=== PATIENT | male | born 1945 | race Caucasian/White ===

== ENCOUNTER → 2016-11-15 | Outpatient (CLI) | payer OTHER ==
[~2016-11-15] MED LIST: ALL100 PO; CYAN3INJ; FLUO10CA48 PO; MULT-506 PO; POTA1080; ZNTT/150 PO; [UNRECOGNIZED DRUG - OTHER]
--- NOTE | 2016-11-15 09:01 | DIAGNOSTIC IMAGING REPORT ---
KUB HISTORY: 71 years-old Male NEPHROLITHIASIS COMPARISON: KUB 07/31/2015 TECHNIQUE: Supine abdominal radiograph FINDINGS: Previously described left-sided nephrolithiasis is mostly obscured by overlying colonic stool. Cluster of calcifications medial to the right kidney are again noted adjacent to the right transverse process of L2. There are multiple surgical clips and mariam within the right mid abdomen. Phleboliths are seen within the pelvis. Bowel gas pattern is nonobstructive. Mild degenerative changes involving the hips. There is mild convex right curvature of the lumbar spine with multilevel degenerative changes of the lumbar spine. IMPRESSION: 1. Previously described left-sided nephrolithiasis are mostly obscured by overlying colonic stool. Further evaluation could be conducted with ultrasound or CT if clinically indicated. 2. Cluster of calcifications medial to the right kidney appear unchanged. 3. Nonobstructive bowel gas pattern. The above report was generated using voice recognition software. It may contain grammatical, syntax or spelling errors. Electronically signed by: Jordon Avila M.D. 11/15/2016 8:59 AM Dictated Date/Time: 11/15/2016 8:55 AM
== END | disposition home or self-care (01) ==
LOC: C.LAB 08:33
PROVIDERS: ATTEND Nurse Practitioner Family
DX: N20.0 Calculus of kidney (principal)

== ENCOUNTER 2018-05-25 18:37 | Inpatient (IN) ==
[2018-05-25] MEDS ORDERED: ONDANSETRON INJ 2 MG/ML 2 ML VIAL IV STA (19:31)
[2018-05-25] MEDS ORDERED: MoRPHine SULFATE 4 MG/ML 1 ML CARP\\VIAL IV STA (19:31)
[2018-05-25 19:40] LABS: Basophils # (auto) 0.01 K/uL (0-0.2); Basophils % (auto) 0.1 %; Eosinophils # (auto) 0.04 K/uL (0-0.5); Eosinophils % (auto) 0.4 %; Hematocrit (blood only) 39.5 % (42-52); Immature Granulocytes # (auto) 0.02 K/uL (0.00-0.02); Immature Granulocytes % (auto) 0.2 %; Lymphocytes # (auto) 0.34 K/uL (1.2-3.4); Lymphocytes % (auto) 3.1 %; Mean Corpuscular Hgb Conc 35.4 g/dL (32-36); Mean Corpuscular Volume 92.9 fL (80-100); Mean Platelet Volume 11.7 fL (7.4-10.4); Monocytes % (auto) 9.9 %; Neutrophils # (auto) 9.58 K/uL (1.4-6.5); Neutrophils % (auto) 86.3 %; Platelet Count 194 K/uL (130-400); RDW Coefficient of Variation 14.6 % (11.5-14.5); RDW Standard Deviation 49.8 fL (36.4-46.3); Red Blood Count 4.25 M/uL (4.7-6.1); White Blood Count 11.09 K/uL (4.8-10.8)
[2018-05-25] MEDS ORDERED: SODIUM CHLORIDE 0.9% 1000ML 1,000 ML IV SCH (19:45)
[2018-05-25 19:49] LABS: Alanine Aminotransferase 32 U/L (12-78); Albumin Level 3.6 gm/dl (3.4-5.0); Aspartate Aminotransferase 17 U/L (15-37); Blood Urea Nitrogen 18 mg/dl (7-18); Calcium 8.9 mg/dl (8.5-10.1); Carbon Dioxide 23 mmol/L (21-32); Chloride 103 mmol/L (98-107); Est GFR (African American) 32.5; Glucose 140 mg/dl (70-99); Potassium 3.7 mmol/L (3.5-5.1); Sodium 135 mmol/L (136-145)
[2018-05-25 19:52] LABS: Albumin Globulin Ratio 0.9 (0.9-2); Alkaline Phosphatase 57 U/L (45-117); Total Protein 7.6 gm/dl (6.4-8.2)
--- NOTE | 2018-05-25 19:53 | Emergency Department Note ---
Entered by Jessie Razo acting as a scribe for Otoniel Gil DO History of Present Illness General Chief complaint: Flank Pain Stated complaint: side pain, lower back pain Time Seen by Provider: 05/25/18 19:01 Source: patient History of Present Illness Onset (ago): day(s) 2 Location: left (Flank) Radiation: back Severity: similar to prior episodes Pain Consistency: + intermittent Maximum Pain Intensity: 8 Quality: + other (Flank pain) Relieved By: + medication (Pain medication) and + other (Heating pad) Exacerbated By: + eating Associated symptoms: + nausea/vomiting and + other (Constipated) Treatments prior to arrival: other (Ibuprofen) The patient is a 72 year old male who presents to the Emergency Room with complaints of intermittent flank pain starting 2 days ago. The patient reports his left flank is very painful and that it is radiating to his back. He states that he has vomited and is constipated. He notes that he has not had a bowel movement in 2.5 days. The patient reports that applying pressure to his flank and eating worsen his pain. He states that taking his pain medication and using a heating pad helped to relieve his pain but that he has ran out of pain medication. He notes that [employer] he took Ibuprofen that did not help his pain. The patient reports that he has a history of having kidney stones and that he just had a KUB done. Home Medications Home Medications Medication Instructions Recorded Confirmed Type allopurinol [Zyloprim] 300 mg PO DAILY 05/25/18 05/25/18 History aspirin [Aspir-81] 81 mg PO DAILY 05/25/18 05/25/18 History cholecalciferol (vitamin D3) 20,000 unit PO DAILY 05/25/18 05/25/18 History [Vitamin D3] cyanocobalamin (vitamin B-12) 1,000 mcg IM MONTHLY 05/25/18 05/25/18 History fluoxetine [Prozac] 20 mg PO QAM 05/25/18 05/25/18 History multivitamin 1 tab PO DAILY 05/25/18 05/25/18 History omega 2-gfa-coh-fish oil [Fish Oil] 2 cap PO QAM 05/25/18 05/25/18 History polysaccharide iron complex 150 mg PO DAILY 05/25/18 05/25/18 History [iFerex 150] potassium citrate [Urocit-K 10] 10 meq PO TID 05/25/18 05/25/18 History ranitidine HCl [Zantac] 150 mg PO DAILY 05/25/18 05/25/18 History thioguanine 40 mg PO DAILY 05/25/18 05/25/18 History Allergies Allergy/AdvReac Type Severity Reaction Status Date / Time No Known Allergies Allergy Unverified 05/25/18 19:55 Past Med/Surg History Medical History Kidney stone Crohn's disease Surgical History History of appendectomy Social History Preferred Language: [place] Feels Safe at Home: Yes Smoking Status: Never smoker Review of Systems See HPI for pertinent positives & negatives. and A total of 10 systems reviewed and were otherwise negative Physical Exam Vital Signs Vital Signs - 24 hr 05/25/18 18:42 05/25/18 20:47 Temperature 37.1 C Temperature Source Oral Sepsis Recent Fever Within 48 Hours No Sepsis New/Unexplained Change in Mental Status No Sepsis Action Taken by Nursing No Action Required Pulse Rate 100 H Pulse Rate [Right Finger] 95 H Respiratory Rate 18 20 Respiratory Depth Normal Blood Pressure 145/91 H Blood Pressure [Right Arm] 164/102 H Blood Pressure Mean 109 Blood Pressure Mean [Right Arm] 122 Pulse Oximetry 99 96 Oxygen Delivery Method Room Air CONSTITUTIONAL/VITAL SIGNS: Reviewed / noted above. GENERAL: Non-toxic in appearance. INTEGUMENTARY: Warm, dry, and Finger. HEAD: Normocephalic. EYES: without scleral icterus or trauma. ENT/OROPHARYNX: clear and moist. LYMPHADENOPATHY/NECK: Is supple without lymphadenopathy or meningismus. RESPIRATORY: Lungs clear and equal. CARDIOVASCULAR: Regular rate and rhythm. GI/ABDOMEN: Soft. No organomegaly or pulsatile mass. No rebound or guarding. Normal bowel sounds. Left sided abdominal tenderness. EXTREMITIES: Warm and well perfused. BACK: Left CVA tenderness. NEUROLOGICAL: Intact without focal deficits. PSYCHIATRIC: normal affect. MUSCULOSKELETAL: Normally developed with good muscle tone. Course 2124: Past medical records reviewed. The patient was evaluated in room A9B, and a complete history and physical examination were performed. 2100: I reviewed the patient's case with Dr. Daniels [facility] [place] Urologist who recommended that the patient stay in the hospital for pain management. 2113: I reviewed the patient's case with Dr. Jamaal Renner hospitalist. He will evaluate the patient for further management. Administered Medications Discontinued Medications Sodium Chloride (Nss 1000ml) 1,000 mls @ 999 mls/hr IV .Q1H1M JAYY Stop: 05/25/18 20:45 Last Admin: 05/25/18 19:42 Dose: 999 mls/hr Documented by: [id number] Morphine Sulfate (Morphine Sulfate) 4 mg IV NOW STA Stop: 05/25/18 19:32 Last Admin: 05/25/18 19:42 Dose: 4 mg Documented by: [id number] Morphine Sulfate (Morphine Sulfate) 6 mg IV NOW STA Stop: 05/25/18 20:08 Last Admin: 05/25/18 20:11 Dose: 6 mg Documented by: [id number] Ondansetron HCl (Zofran) 4 mg IV NOW STA Stop: 05/25/18 19:32 Last Admin: 05/25/18 19:42 Dose: 4 mg Documented by: [id number] Medical Decision Making Differential Diagnosis Differential diagnosis: Etiologies such as shingles, pyelonephritis/UTI, renal colic, appendicitis, diverticulitis, mesenteric ischemia, torsion, aortic pathology, infections, inflammatory bowel disease, bowel obstruction, PUD, biliary pathology, as well as others were entertained. Medical Records Attestation: I reviewed the patient's medical records. Home Medications Current Medication List: was personally reviewed by me Laboratory Data Attestation: I reviewed the patient's lab results. Result diagrams: 05/25/18 19:10 05/25/18 19:10 Lab Results 05/25/18 05/25/18 Range/Units 19:10 19:10 WBC 11.09 H (4.8-10.8) K/uL RBC 4.25 L (4.7-6.1) M/uL Hgb 14.0 (14.0-18.0) g/dL Hct 39.5 L (42-52) % MCV 92.9 (80-100) fL MCH 32.9 (25-34) pg MCHC 35.4 (32-36) g/dL RDW Std Deviation 49.8 H (36.4-46.3) fL RDW Coeff of Edwina 14.6 H (11.5-14.5) % Plt Count 194 (130-400) K/uL MPV 11.7 H (7.4-10.4) fL Immature Gran % (Auto) 0.2 % Neut % (Auto) 86.3 % Lymph % (Auto) 3.1 % [place] % (Auto) 9.9 % Eos % (Auto) 0.4 % Baso % (Auto) 0.1 % Immature Gran # (Auto) 0.02 (0.00-0.02) K/uL Neut # (Auto) 9.58 H (1.4-6.5) K/uL Lymph # (Auto) 0.34 L (1.2-3.4) K/uL [place] # (Auto) 1.10 H (0.11-0.59) K/uL Eos # (Auto) 0.04 (0-0.5) K/uL Baso # (Auto) 0.01 (0-0.2) K/uL Sodium 135 L (136-145) mmol/L Potassium 3.7 (3.5-5.1) mmol/L Chloride 103 (98-107) mmol/L Carbon Dioxide 23 (21-32) mmol/L Anion Gap 9.0 (3-11) BUN 18 (7-18) mg/dl Creatinine 2.24 H (0.6-1.4) mg/dl Est Cr Clr Drug Dosing Not Reportable Est GFR ( Amer) 32.5 Est GFR (Non-Af Amer) 28.0 BUN/Creatinine Ratio 8.0 L (10-20) Glucose 140 H (70-99) mg/dl Calcium 8.9 (8.5-10.1) mg/dl Total Bilirubin 1.0 (0.2-1) mg/dl AST 17 (15-37) U/L ALT 32 (12-78) U/L Alkaline Phosphatase 57 (45-117) U/L Total Protein 7.6 (6.4-8.2) gm/dl Albumin 3.6 (3.4-5.0) gm/dl Globulin 4.0 (2.5-4.0) gm/dl Albumin/Globulin Ratio 0.9 (0.9-2) Lipase 97 (73-393) U/L Imaging Data Radiologist's Impression: Radiology results as stated below per my review and the radiologist's interpretation: ABDOMEN AND PELVIS CT WITHOUT CONTRAST CT DOSE: 524.13 mGy.cm HISTORY: Acute left-sided flank pain and left lower quadrant abdominal pain left flank pain TECHNIQUE: Multiaxial CT images of the abdomen and pelvis were performed without contrast. A dose lowering technique was utilized adhering to the principles of ALARA. COMPARISON STUDY: KUB 05/23/2018, CT abdomen and pelvis 12/31/2010. FINDINGS: Mild subsegmental bibasilar atelectasis/scarring with scattered calcified granulomata. 6 mm solid nodule of the basal left lower lobe, image 71 series 3 is unchanged from 2011 compatible with benign etiology. Unchanged 3 mm solid nodule of the basal right lower lobe. There is no pneumatosis or pneumoperitoneum. The imaged inferior cardiac chambers are unremarkable with coronary arterial calcifications noted. There is mild to moderate gallbladder distention without cholelithiasis identified. Hepatic steatosis. Liver is otherwise unremarkable. No intrahepatic biliary ductal dilation. The spleen, pancreas and adrenal glands are unremarkable. Mild renal cortical thinning noted bilaterally. There are at least 4 nonobstructing calculi about the right kidney measuring up to 2-3 mm. Mild dilation about the proximal right ureter without ureteral calculi or hydronephrosis. 3.0 cm cyst of the superior pole right kidney. Moderate left- sided hydroureteronephrosis secondary to an 8 x 6 x 13 mm calculus about the left proximal ureter, just distal to the ureteropelvic junction at the level of the mid L3 vertebral body. Layering calculi about the renal pelvis measuring up to 1.8 cm. Punctate nonobstructing calculi are seen about the inferior pole left kidney. Moderate left urothelial thickening. There is severe left perinephric and moderate periureteral inflammation. 6.6 x 5.1 cm cyst of the inferior pole left kidney, previously measured 5.6 x 3.8 cm from 2011. On today's study there is new acute hemorrhage along the inferior aspect of the cyst. Moderate perinephric edema tracks into the left hemipelvis. Mild nonspecific urinary bladder wall thickening with prostamegaly. Small fat filled bilateral inguinal hernias. Calcification of the aorta without aneurysm. No adenopathy. No bowel obstruction or focal bowel wall thickening. Tortuous sigmoid colon. Mild to moderate formed stool throughout the colon suggests constipation. Multiple surgical clips noted about the right hemiabdomen abdominal right lower quadrant. Findings suggest prior partial right hemicolectomy with enterocolic anastomosis. There are several tiny fat filled ventral abdominal wall hernias. Bones appear to be intact without acute fracture. Degenerative changes of the spine, pelvis and hips. IMPRESSION: 1. Moderate left-sided hydroureteronephrosis secondary to an 8 x 6 x 13 mm calculus about the proximal left ureter, just distal to the ureteropelvic junc tion at the level of the mid L3 vertebral body. 2. Moderate associated left urothelial thickening is likely reactive. Correlate with urinalysis to exclude superimposed infection. 3. Nonobstructing bilateral nephrolithiasis with large calculi noted about the left renal pelvis. 4. Large left renal cyst about the inferior pole left kidney demonstrates mild acute internal hemorrhage. 5. Prostamegaly with mild urinary bladder wall thickening suggestive of chronic bladder outlet obstruction. 6. Suggested constipation. 7. Hepatic steatosis. 8. Additional findings as above. Electronically signed by: Jordon Avila M.D. 05/25/2018 8:39 PM Blood Pressure Blood Pressure Findings: Elevated blood pressure Blood Pressure Disposition: further management by hospitalist [place] Narrative This is a 72-year-old male who presents to the ED of left-sided flank and back pain. His symptoms started on Monday. He states that he had a KUB done by Dr. Suarez. On he vomited because of the pain. This morning he felt okay but his pain came on with increased intensity this afternoon. It appeared to be from migrating towards the front. He came in for evaluation. The vital signs are stable. His blood pressure was 145/91. He has left CVA tenderness on exam as well as some left-sided abdominal tenderness. CBC is unremarkable. Chemistry panel was unremarkable with exception of a creatinine of 2.24. The CT scan of the abdomen pelvis reveals a large left-sided ureteral calculus measuring 8 x 6 x 13 in the proximal left ureter causing moderate left-sided hyd roureteronephrosis. There is also noted to be a large left renal cyst with some internal hemorrhage that is described as mild. The patient's symptoms were improved somewhat with 10 mg of IV morphine. He received 4 mg and then 6 mg. He was also given IV Zofran and IV fluids. I spoke with Dr. Milan from urology. He recommends the patient be admitted for inpatient evaluation. I spoke with Dr. Angulo. He will see the patient. Impression & Plan Renal colic, Left ureteral stone, Acute kidney insufficiency The scribe's documentation has been prepared under my direction and personally reviewed by me in its entirety. I confirm that the note above accurately reflects all work, treatment, procedures, and medical decision making performed by me.
[2018-05-25] MEDS ORDERED: MoRPHine SULFATE 10 MG/ML CARP/VIAL IV STA (20:07)
--- NOTE | 2018-05-25 20:41 | CT Scan Report ---
ABDOMEN AND PELVIS CT WITHOUT CONTRAST CT DOSE: 524.13 mGy.cm HISTORY: Acute left-sided flank pain and left lower quadrant abdominal pain left flank pain TECHNIQUE: Multiaxial CT images of the abdomen and pelvis were performed without contrast. A dose lo wering technique was utilized adhering to the principles of ALARA. COMPARISON STUDY: KUB 05/23/2018, CT abdomen and pelvis 12/31/2010. FINDINGS: Mild subsegmental bibasilar atelectasis/scarring with scattered calcified granulomata. 6 mm solid nod ule of the basal left lower lobe, image 71 series 3 is unchanged from 2011 compatible with benign rachel ology. Unchanged 3 mm solid nodule of the basal right lower lobe. There is no pneumatosis or pneumope ritoneum. The imaged inferior cardiac chambers are unremarkable with coronary arterial calcifications noted. There is mild to moderate gallbladder distention without cholelithiasis identified. Hepatic steatosis . Liver is otherwise unremarkable. No intrahepatic biliary ductal dilation. The spleen, pancreas and adrenal glands are unremarkable. Mild renal cortical thinning noted bilaterally. There are at least 4 nonobstructing calculi about the right kidney measuring up to 2-3 mm. Mild dilation about the proximal right ureter without ureteral calculi or hydronephrosis. 3.0 cm cyst of the superior pole right kidney. Moderate left-sided hydrour eteronephrosis secondary to an 8 x 6 x 13 mm calculus about the left proximal ureter, just distal to the ureteropelvic junction at the level of the mid L3 vertebral body. Layering calculi about the espinoza l pelvis measuring up to 1.8 cm. Punctate nonobstructing calculi are seen about the inferior pole lef t kidney. Moderate left urothelial thickening. There is severe left perinephric and moderate periuret eral inflammation. 6.6 x 5.1 cm cyst of the inferior pole left kidney, previously measured 5.6 x 3.8 cm from 2011. On today's study there is new acute hemorrhage along the inferior aspect of the cyst. M oderate perinephric edema tracks into the left hemipelvis. Mild nonspecific urinary bladder wall thic kening with prostamegaly. Small fat filled bilateral inguinal hernias. Calcification of the aorta without aneurysm. No adenopathy. No bowel obstruction or focal bowel wall thickening. Tortuous sigmoid colon. Mild to moderate formed stool throughout the colon suggests const ipation. Multiple surgical clips noted about the right hemiabdomen abdominal right lower quadrant. Fi ndings suggest prior partial right hemicolectomy with enterocolic anastomosis. There are several tiny fat filled ventral abdominal wall hernias. Bones appear to be intact without acute fracture. Degener ative changes of the spine, pelvis and hips. IMPRESSION: 1. Moderate left-sided hydroureteronephrosis secondary to an 8 x 6 x 13 mm calculus about the proxima l left ureter, just distal to the ureteropelvic junction at the level of the mid L3 vertebral body. 2. Moderate associated left urothelial thickening is likely reactive. Correlate with urinalysis to ex clude superimposed infection. 3. Nonobstructing bilateral nephrolithiasis with large calculi noted about the left renal pelvis. 4. Large left renal cyst about the inferior pole left kidney demonstrates mild acute internal hemorrh age. 5. Prostamegaly with mild urinary bladder wall thickening suggestive of chronic bladder outlet obstru ction. 6. Suggested constipation. 7. Hepatic steatosis. 8. Additional findings as above. Electronically signed by: Jordon Avila M.D. 05/25/2018 8:39 PM
[2018-05-25 21:19] LABS: Appearance Urine Cloudy (Clear); Bacteria Urine Automated Negative (Negative); Bilirubin Urine Negative (Negative); Blood Urine Negative (Negative); Color Urine Yellow; Epithelial Cell Urine Auto 20-30 /lpf (0-5); Glucose Urine UA Negative (Negative); Ketones Urine 1+ (Negative); Leukocyte Esterase Urine 1+ (Negative); Nitrite Urine Negative (Negative); Protein Urine Negative (Negative); RBC Urine Automated 0-4 /hpf (0-4); Specific Gravity Urine 1.016 (1.000-1.030); Urobilinogen Urine Negative (Negative); pH Urine 7.5 (4.5-7.5)
[2018-05-25] MEDS ORDERED: HYDROmorphone INJ 1 MG/ML SYRINGE IV STA (21:49)
[2018-05-25] MEDS ORDERED: PROCHLORPERAZINE 5 MG in SYRINGE 4 ML IV PRN (21:51)
--- NOTE | 2018-05-25 22:16 | History & Physical Report ---
Date of Service May 25, 2018 Assessment & Plan (1) Left ureteral stone: Pt presented with L flank pain x 2 days. Nausea, vomiting yesterday. Denies hematuria, dysuria. max temp: 99F In ER pt is afebrile, P: 100 to 95, R: 18, BP: 145/91, 99% on RA. WBC: 11, BUN: 18, Cr: 2.2. UA: 1+ leuk,10-30 WBC, 20-30 epithelial Was given morphine, dilaudid, zofran, phenergan with limited relief. CT ABD/PELVIS: 1. Moderate left-sided hydroureteronephrosis secondary to an 8 x 6 x 13 mm calculus about the proximal left ureter, just distal to the ureteropelvic junction at the level of the mid L3 vertebral body. 2. Moderate associated left urothelial thickening is likely reactive. Correlate with urinalysis to exclude superimposed infection. 3. Nonobstructing bilateral nephrolithiasis with large calculi noted about the left renal pelvis. 4. Large left renal cyst about the inferior pole left kidney demonstrates mild acute internal hemorrhage. 5. Prostamegaly with mild urinary bladder wall thickening suggestive of chronic bladder outlet obstruction. 6. Suggested constipation. 7. Hepatic steatosis. -admit -pain control, antiemetics -npo midnight -urology consult appreciate recommendations (2) Acute kidney injury superimposed on CKD: Hx CKD III Cr: 2.2. Baseline Cr: 1.3-1.4. -monitor renal functions -avoid nephrotoxic agents when possible (3) Chronic anemia: Hgb: 14 -monitor H&H (4) Crohn's disease: On thioguanine Full Code as per discussion with pt Follows with Dr Bose for routine care Pt was seen with Dr Hinton. See addendum for further assessment and plan History of Present Illness Chief Complaint: L flank pain Primary Care Provider: Ricky Bose Pt is 72 y/o M with PMH kidney stone with hx stent and lithotripsy, CKD III, chronic anemia, crohn's presented to ER with c/o L flank pain x 2 days. Today pain radiated to left lower abdomen. Patient states has been having intermittent nausea, vomited yesterday. Reports was taking oxycodone he had from previous kidney stone with a little relief however he ran out today. Patient reports last BM 2 days ago. He denies dysuria, hematuria. Max temp 99F. Denies diaphoresis, FIGUEROA, dizziness, syncope, vision changes, neck pain, CP, SOB, orthopnea, palpitations, cough, sore throat, choking, paresthesias, weakness, extremity weakness, extremity edema, rashes. Allergies Allergy/AdvReac Type Severity Reaction Status Date / Time No Known Allergies Allergy Unverified 05/25/18 19:55 Home Medications Home Medications Medication Instructions Recorded Confirmed Type allopurinol [Zyloprim] 300 mg PO DAILY 05/25/18 05/25/18 History aspirin [Aspir-81] 81 mg PO DAILY 05/25/18 05/25/18 History cholecalciferol (vitamin D3) 20,000 unit PO DAILY 05/25/18 05/25/18 History [Vitamin D3] cyanocobalamin (vitamin B-12) 1,000 mcg IM MONTHLY 05/25/18 05/25/18 History fluoxetine [Prozac] 20 mg PO QAM 05/25/18 05/25/18 History multivitamin 1 tab PO DAILY 05/25/18 05/25/18 History omega 7-wkw-bzq-fish oil [Fish Oil] 2 cap PO QAM 05/25/18 05/25/18 History polysaccharide iron complex 150 mg PO DAILY 05/25/18 05/25/18 History [iFerex 150] potassium citrate [Urocit-K 10] 10 meq PO TID 05/25/18 05/25/18 History ranitidine HCl [Zantac] 150 mg PO DAILY 05/25/18 05/25/18 History thioguanine 40 mg PO DAILY 05/25/18 05/25/18 History Past Med/Surg History Medical History Chronic anemia (Chronic) CKD (chronic kidney disease), stage III (Chronic) Kidney stone (Resolved) Crohn's disease (Chronic) Surgical History History of bowel resection (Resolved) History of appendectomy (Resolved) Family History Other Prostate cancer Social History Communication Ability: Effective Service Director Required: No Beliefs That Will Affect Care: None Current Living Situation: Spouse Other Information That Helps Us Care for You: No Feels Safe at Home: Yes Safety Concerns: Feels Safe At This Time Smoking Status: Unknown if ever smoked Hx Alcohol Use: Yes Hx Substance Use: No Review of Systems All systems reviewed & are unremarkable except as noted in HPI & below Physical Exam Vital Signs (Past 24 Hours): Last Vital Signs Temp 37.2 C 05/25/18 21:45 Pulse 94 H 05/25/18 21:45 Resp 16 05/25/18 21:45 BP 160/96 H 05/25/18 21:45 Pulse Ox 93 05/25/18 21:45 Physical Exam: General: mild distress secondary to flank pain, WDWN Head: normocephalic, atraumatic Eyes: PERRL, EOM's intact, conjunctiva non-injected, anicteric ENT: normal inspection external ears, nose, mucous membranes dry Neck: supple, trachea midline Lungs: clear, no respiratory distress, no wheezing/rhonchi/rales CV: RRR, no pretibial edema Abd: normal BS, +surgical scars, soft, +tender to palpation Left CVA, left flank, LLQ Ext: no cyanosis, no calf tenderness Neuro: A&O x 3, no focal deficits noted, normal affect Skin: warm, dry Results & Data Laboratory Results Short CBC 05/25/18 Range/Units 19:10 WBC 11.09 H (4.8-10.8) K/uL Hgb 14.0 (14.0-18.0) g/dL Hct 39.5 L (42-52) % Plt Count 194 (130-400) K/uL BMP 05/25/18 19:10 Sodium 135 L Potassium 3.7 Chloride 103 Carbon Dioxide 23 BUN 18 Creatinine 2.24 H Glucose 140 H Calcium 8.9 Liver Function 05/25/18 Range/Units 19:10 Total Bilirubin 1.0 (0.2-1) mg/dl AST 17 (15-37) U/L ALT 32 (12-78) U/L Alkaline Phosphatase 57 (45-117) U/L Albumin 3.6 (3.4-5.0) gm/dl Urine 05/25/18 Range/Units 20:55 Urine Color Yellow Urine Appearance Cloudy H (Clear) Urine pH 7.5 (4.5-7.5) Ur Specific [place] 1.016 (1.000-1.030) Urine Protein Negative (Negative) Urine Glucose (UA) Negative (Negative) Diagnostic Findings CT ABD/PELVIS: IMPRESSION: 1. Moderate left-sided hydroureteronephrosis secondary to an 8 x 6 x 13 mm calculus about the proximal left ureter, just distal to the ureteropelvic junction at the level of the mid L3 vertebral body. 2. Moderate associated left urothelial thickening is likely reactive. Correlate with urinalysis to exclude superimposed infection. 3. Nonobstructing bilateral nephrolithiasis with large calculi noted about the left renal pelvis. 4. Large left renal cyst about the inferior pole left kidney demonstrates mild acute internal hemorrhage. 5. Prostamegaly with mild urinary bladder wall thickening suggestive of chronic bladder outlet obstruction. 6. Suggested constipation. 7. Hepatic steatosis. 8. Additional findings as above. Supervising Physician Co-Signing Physician Notes IM ATTENDING : Patient seen and examined. History obtained from patient and records. Preceding documentation by Ms. Evelyn Leary PA-C reviewed. FINAL ASSESSMENT AND PLAN as follows : ARF on CRI secondary to recurrent obstructive uropathy No sepsis for now L renal cyst hemorrhage on CT Opioid-induced constipation Situational hypertension IBD status post surgery Hyperglycemia rule out DM hx postop LE DVT status post Coumadin Past tobacco abuse GMF Monitor creatinine response to IV fluids Urology consult RE obstructive uropathy (ER provider already in touch with Dr. Milan.) Analgesia, monitor BP Bowel regimen Check hemoglobin A1c Hold home aspirin for now given left renal cyst hemorrhage DVT prophylaxis. SCDs RE (L renal cyst hemorrhage) Full code
[2018-05-25] MEDS ORDERED: POLYETHYLENE (MIRALAX) 17 GM PACK PO STA (23:34)
[2018-05-25] MEDS ORDERED: HYDROmorphone INJ 0.5 MG/0.5 ML SYR IV PRN (23:34)
[2018-05-25] MEDS ORDERED: POLYETHYLENE (MIRALAX) 17 GM PACK PO PRN (23:34)
[2018-05-26] MEDS: DOCUSATE SODIUM 100 MG CAP PO SCH ×2 (00:21→13:04)
[2018-05-26] MEDS ORDERED: ACETAMINOPHEN 325 MG TAB PO PRN (02:42)
[2018-05-26] MEDS: NSS + 20MEQ KCL 20 MEQ/1,000 ML BAG IV SCH ×2 (03:37→23:28)
[2018-05-26] MEDS: OXYCODONE/ACETAMINOPHEN 5mg/325mg TAB PO PRN ×2 (03:58→08:09)
[2018-05-26 06:38] LABS: Estimated Average Glucose 105 mg/dl; Hemoglobin A1C 5.3 % (4.5-5.6)
[2018-05-26 06:39] LABS: Basophils # (auto) 0.01 K/uL (0-0.2); Basophils % (auto) 0.1 %; Eosinophils # (auto) 0.04 K/uL (0-0.5); Eosinophils % (auto) 0.3 %; Hemoglobin 12.5 g/dL (14.0-18.0); Immature Granulocytes # (auto) 0.03 K/uL (0.00-0.02); Immature Granulocytes % (auto) 0.3 %; Lymphocytes # (auto) 0.49 K/uL (1.2-3.4); Lymphocytes % (auto) 4.2 %; Mean Corpuscular Hgb Conc 34.7 g/dL (32-36); Mean Corpuscular Volume 94.5 fL (80-100); Mean Platelet Volume 11.8 fL (7.4-10.4); Monocytes # (auto) 1.11 K/uL (0.11-0.59); Monocytes % (auto) 9.5 %; Neutrophils # (auto) 10.02 K/uL (1.4-6.5); Neutrophils % (auto) 85.6 %; Platelet Count 160 K/uL (130-400); RDW Coefficient of Variation 14.8 % (11.5-14.5); Red Blood Count 3.81 M/uL (4.7-6.1)
--- NOTE | 2018-05-26 06:40 | XRay Report ---
XR chest 1V portable CLINICAL HISTORY: renal failure dyspnea COMPARISON STUDY: No previous studies for comparison. FINDINGS: The bones soft tissues and hemidiaphragms are normal. The cardiomediastinal silhouette is n ormal. The lungs are clear. The pulmonary vasculature is normal. IMPRESSION: Negative chest. The above report was generated using voice recognition software. It may contain grammatical, syntax or spelling errors. Electronically signed by: Victor Manuel Carolina M.D. 05/26/2018 6:38 AM
[2018-05-26 07:15] LABS: BUN Creatinine Ratio 7.7 (10-20); Calcium 8.2 mg/dl (8.5-10.1); Creatinine Clr Calc Pharmacy 33.1 ml/min; Est GFR (African American) 34.1; Est GFR (Non-African American) 29.5; Potassium 3.9 mmol/L (3.5-5.1)
[2018-05-26] MEDS ORDERED: [UNRECOGNIZED DRUG - OTHER] PO SCH (09:00)
[2018-05-26 09:05] LABS: Partial Thromboplastin Ratio 1.2; Partial Thromboplastin Time 31.2 Seconds (21.0-31.0)
[2018-05-26] MEDS: POTASSIUM CITRATE 10 MEQ TAB PO SCH ×3 (10:27→21:03)
[2018-05-26] MEDS: FLUOXETINE HCL 20 MG CAP PO SCH (10:27)
[2018-05-26] MEDS: ALLOPURINOL 300 MG TAB PO SCH (10:28)
--- NOTE | 2018-05-26 12:05 | Urology Consultation ---
Date of Consultation May 26, 2018 Assessment & Plan (1) Left ureteral stone: Patient with significant PETE and pain. Discussed options. Risks and benefits discussed. Large stone with hydronephrosis. Plan for cystoscopy with left retrograde and stent placement. (2) Acute kidney injury superimposed on CKD: Hx CKD III Cr: 2.2. Baseline Cr: 1.3-1.4. -monitor renal functions -avoid nephrotoxic agents when possible (3) Chronic anemia: Hgb: 14 -monitor H&H (4) Crohn's disease: On thioguanine Full Code as per discussion with pt Follows with Dr Bose for routine care Pt was seen with Dr Hinton. See addendum for further assessment and plan History of Present Illness Reason for Consultation: Left Stone, PETE Attending Physician: Yecenia Fink DO History of Present Illness Patient with approx 1 week of intermittent pain in flank. Had history of stones. Came to ER with severe pain. Found to have large ureteral stone with obs PETE, large cyst with potential bleed. Pain in waves to flank with some discomfort and nausea. Allergies Allergy/AdvReac Type Severity Reaction Status Date / Time No Known Allergies Allergy Unverified 05/25/18 19:55 Home Medications Home Medications Medication Instructions Recorded Confirmed Type allopurinol [Zyloprim] 300 mg PO DAILY 05/25/18 05/25/18 History aspirin [Aspir-81] 81 mg PO DAILY 05/25/18 05/25/18 History cholecalciferol (vitamin D3) 20,000 unit PO DAILY 05/25/18 05/25/18 History [Vitamin D3] cyanocobalamin (vitamin B-12) 1,000 mcg IM MONTHLY 05/25/18 05/25/18 History fluoxetine [Prozac] 20 mg PO QAM 05/25/18 05/25/18 History multivitamin 1 tab PO DAILY 05/25/18 05/25/18 History omega 5-dmt-csh-fish oil [Fish Oil] 2 cap PO QAM 05/25/18 05/25/18 History polysaccharide iron complex 150 mg PO DAILY 05/25/18 05/25/18 History [iFerex 150] potassium citrate [Urocit-K 10] 10 meq PO TID 05/25/18 05/25/18 History ranitidine HCl [Zantac] 150 mg PO DAILY 05/25/18 05/25/18 History thioguanine 40 mg PO DAILY 05/25/18 05/25/18 History Patient History Medical History Chronic anemia (Chronic) CKD (chronic kidney disease), stage III (Chronic) Kidney stone (Resolved) Crohn's disease (Chronic) Surgical History History of bowel resection (Resolved) History of appendectomy (Resolved) Family History Other Prostate cancer Social History Communication Ability: Effective Steam Blocker Required: No Beliefs That Will Affect Care: None Current Living Situation: Spouse Other Information That Helps Us Care for You: No Feels Safe at Home: Yes Safety Concerns: Feels Safe At This Time Smoking Status: Unknown if ever smoked Hx Alcohol Use: Yes Hx Substance Use: No Review of Systems All reviewed. All pertinent positives and negatives are in HPI. Physical Exam Vital Signs (Past 24 Hours): Last Vital Signs Temp 37.1 C 05/26/18 07:17 Pulse 95 H 05/26/18 07:17 Resp 18 05/26/18 07:17 BP 132/82 05/26/18 07:17 Pulse Ox 94 05/26/18 07:17 Constitutional: WD/WN, vitals as above well developed and well nourished; not ill appearing Eyes: eyes not dysmorphic and no conjunctival abnormality ENMT: Ears: no hearing impairment and no external ear abnormality Neck: trachea midline; no tracheal deviation Respiratory: normal respiratory effort; no respiratory distress and does not use accessory muscles Cardiovascular: Rate/Rhythm: not tachycardic Chest (Breasts): Chest: normal inspection of chest Gastrointestinal (Abdomen): Inspection/Auscultation: abdomen normal to inspection Percussion/Palpation: abdomen soft; abdomen nontender and no guarding Musculoskeletal: Head/Neck/Chest: + head abnormal to inspection, normocephalic and head atraumatic Skin: no rashes and no lesions Neurologic: CN's II-XI intact bilaterally; not confused Psychiatric: Orientation: alert and oriented x 3 Genitourinary: + CVA tenderness Lymphatic: no lymphadenopathy
[2018-05-26] MEDS ORDERED: IOTHALAMATE MEGLUMINE II 17.2% 250 ML VIAL ONE (12:49)
[2018-05-26] MEDS ORDERED: LIDOCAINE HCL 2% 2 ML VIAL/AMP(20MG/ML) INFIL ONE (12:50)
[2018-05-26] MEDS ORDERED: PROPOFOL IV EMULSION 10 MG/ML 20 ML VIAL IV ONE (12:50)
[2018-05-26] MEDS ORDERED: fentaNYL citrate 100 MCG/2 ML VIAL ONE (12:51)
[2018-05-26] MEDS ORDERED: MIDAZOLAM HCL 1 MG/ML 2ML VIAL ONE (12:51)
[2018-05-26] MEDS: IRON POLYSACCHARIDE COMPLEX 150 MG CAPSULE PO SCH (13:04)
[2018-05-26] MEDS: MULTIVITAMIN TAB PO SCH (13:04)
--- NOTE | 2018-05-26 13:20 | Anesthesiology Consultation ---
Date of Service May 26, 2018 Assessment & Plan Chart Review Chart Review: Acceptable Risk for Surgery Consults Requested none NPO Date Last Intake of Fluids: 05/25/18 Time Last Intake of Fluids: 23:59 Last Intake of Fluids Comment: sip of water with medication Date Last Intake of Solids: 05/25/18 Time Last Intake of Solids: 23:59 History Surgery Operation Date: 05/26/18 12:30 Proposed Procedures p Ureteral Stent Insertion/Removal(Left) - Cj Milan II, DO Height/Weight Height: 5 ft 11.5 in Weight: 83.2 kg Allergies Allergy/AdvReac Type Severity Reaction Status Date / Time No Known Allergies Allergy Unverified 05/25/18 19:55 Medications Home Medications Medication Instructions Recorded Confirmed Last Taken allopurinol [Zyloprim] 300 mg PO DAILY 05/25/18 05/25/18 Unknown aspirin [Aspir-81] 81 mg PO DAILY 05/25/18 05/25/18 Unknown cholecalciferol (vitamin D3) 20,000 unit PO DAILY 05/25/18 05/25/18 Unknown [Vitamin D3] cyanocobalamin (vitamin B-12) 1,000 mcg IM MONTHLY 05/25/18 05/25/18 Unknown fluoxetine [Prozac] 20 mg PO QAM 05/25/18 05/25/18 Unknown multivitamin 1 tab PO DAILY 05/25/18 05/25/18 Unknown omega 4-vyp-tao-fish oil [Fish Oil] 2 cap PO QAM 05/25/18 05/25/18 Unknown polysaccharide iron complex 150 mg PO DAILY 05/25/18 05/25/18 Unknown [iFerex 150] potassium citrate [Urocit-K 10] 10 meq PO TID 05/25/18 05/25/18 Unknown ranitidine HCl [Zantac] 150 mg PO DAILY 05/25/18 05/25/18 Unknown thioguanine 40 mg PO DAILY 05/25/18 05/25/18 Unknown Active Medications Generic Name Dose Route Start Last Admin Trade Name Freq PRN Reason Stop Dose Admin Allopurinol 300 mg 05/26/18 09:00 05/26/18 10:28 Zyloprim PO 06/25/18 08:59 Not Given DAILY JAYY Docusate Sodium 100 mg 05/25/18 23:34 05/26/18 13:04 Colace PO 06/24/18 23:33 Not Given DAILY JAYY Fluoxetine HCl 20 mg 05/26/18 09:00 05/26/18 10:27 Prozac PO 06/25/18 08:59 Not Given QAM JAYY Potassium Chloride/Sodium Chloride 20 meq in 1,000 mls @ 60 mls/hr 05/26/18 02:45 05/26/18 13:06 Normal Saline W/20 Meq Kcl IV 06/25/18 02:44 0 mls/hr .[id number] JAYY Infusion Multivitamins 1 tab 05/26/18 09:00 05/26/18 13:04 Multivitamin Tab PO 06/25/18 08:59 Not Given DAILY JAYY Oxycodone/Acetaminophen 1 tab 05/25/18 23:34 05/26/18 08:09 Percocet 5mg/325mg PO 06/08/18 23:33 1 tab Q4H PRN Administration Pain Polysaccharide Iron Complex 150 mg 05/26/18 09:00 05/26/18 13:04 Niferex-150 W/Vit C Cap PO 06/25/18 08:59 Not Given DAILY JAYY Potassium Citrate 10 meq 05/26/18 09:00 05/26/18 10:27 Urocit-K PO 06/25/18 08:59 Not Given TID JAYY Ranitidine HCl 150 mg 05/26/18 09:00 05/26/18 10:27 Zantac PO 06/25/18 08:59 Not Given DAILY JAYY Past Medical History Medical History Chronic anemia (Chronic) CKD (chronic kidney disease), stage III (Chronic) Kidney stone (Resolved) Crohn's disease (Chronic) Past Family History Family History Other Prostate cancer Past Surgical History Surgical History History of bowel resection (Resolved) History of appendectomy (Resolved) Social History Smoking Status: Unknown if ever smoked Hx Alcohol Use: Yes Alcohol type: beer alcohol intake frequency: a few times a week Hx Substance Use: No Physical Exam Vital Signs Last Vital Signs Temp 37.1 C 05/26/18 07:17 Pulse 95 H 05/26/18 07:17 Resp 18 03/02/19 07:17 BP 132/82 05/26/18 07:17 Pulse Ox 94 05/26/18 07:17 Testing Laboratory Results 05/26/18 06:05 05/26/18 06:05 APTT 31.2 Seconds (21.0-31.0) H 05/26/18 08:41 Hemoglobin A1c 5.3 % (4.5-5.6) 05/25/18 19:10 Urine Color Yellow 05/25/18 20:55 Urine Appearance Cloudy (Clear) H 05/25/18 20:55 Urine pH 7.5 (4.5-7.5) 05/25/18 20:55 Ur Specific [place] 1.016 (1.000-1.030) 05/25/18 20:55 Urine Protein Negative (Negative) 05/25/18 20:55 Urine Glucose (UA) Negative (Negative) 05/25/18 20:55 Urine Ketones 1+ (Negative) H 05/25/18 20:55 Urine Nitrite Negative (Negative) 05/25/18 20:55 Ur Leukocyte Esterase 1+ (Negative) H 05/25/18 20:55 Urine WBC (Auto) 10-30 /hpf (0-5) H 05/25/18 20:55 Urine RBC (Auto) 0-4 /hpf (0-4) 05/25/18 20:55 U Hyaline Cast (Auto) 1-5 /lpf (0-5) 05/25/18 20:55 U Epithel Cells (Auto) 20-30 /lpf (0-5) H 05/25/18 20:55 Urine Bacteria (Auto) Negative (Negative) 05/25/18 20:55 05/25/18 20:55 Urine Culture - Preliminary Urine,Clean Catch No growth - Less than 1,000 colonies/mL, Final report to follow.
[2018-05-26] MEDS ORDERED: HYDROmorphone INJ 2 MG/ML SYR/VIAL IV PRN (13:28)
[2018-05-26] MEDS ORDERED: ATROPINE SULFATE 0.1 MG/ML 10ML SYR IV PRN (13:28)
[2018-05-26] MEDS ORDERED: fentaNYL citrate 100 MCG/2 ML VIAL IV PRN (13:28)
[2018-05-26] MEDS ORDERED: ePHEDrine sulfate 50 MG/ML AMP IV PRN (13:28)
[2018-05-26] MEDS ORDERED: ONDANSETRON INJ 2 MG/ML 2 ML VIAL ONE (13:36)
[2018-05-26] MEDS ORDERED: DEXAMETHASONE SOD INJ 4 MG/ML VIAL ONE (13:36)
--- NOTE | 2018-05-26 13:59 | Operative Report ---
Post Operative Report Pre & Post Diagnosis Operation Date: 05/26/18 12:30 Pre-Op Diagnosis: Left ureteral stone Post-Op Diagnosis: Left ureteral stone Procedure Operation Date: 05/26/18 12:30 Actual Procedures p Cystoscopy, Left Retrograde pyleogram, Left Ureteral Stent Insertion(Left) - Cj Milan II, DO Surgeon Cj Milan, II, DO Public Interviewer None Estimated Blood Loss 0 Findings Consistent with Post-Op Diagnosis Specimens None Drains 6 Fr Multilength Anesthesia Type General Complications none Disposition Disposition: Recovery Room Indications Large ureteral stone with PETE. Risks and benefits discussed at length. Description of Procedure Patient was consented and brought back to the operating room. Patient was placed under anesthesia in the supine position and moved to the dorsal lithotomy position. Patient was prepped and draped in the regular sterile fashion. A time out was completed. A 30degree Cystoscope was placed into the bladder and the entire bladder was examined. The UO's were identified. The left UO was cannulized with a catheter, a urine aspiration completed, and a retrograde pyelogram was completed. A wire was then placed. With the wire in place, a 6 Fr Double J stent was placed. It was confirmed with fluoroscopy. With the stent in place, the bladder was emptied. The scope was removed. The patient was cleaned, aroused from anesthesia, and transferred to the pacu in stable condition having tolerated the procedure well with no complications. I was present and participated in all aspects of the procedure. The patient will be monitored in the PACU until transferred. I attest to the content of the Intraoperative Record and any orders documented therein. Any exceptions are noted below.
[2018-05-26] MEDS ORDERED: CEFAZOLIN 2000MG 2,000 MG/15 ML SYR IV SCH (14:00)
--- NOTE | 2018-05-26 14:04 | Fluoroscopy Report ---
FL retrograde includes kub CLINICAL HISTORY: LT STENTstent placement COMPARISON STUDY: None FLUOROSCOPY TIME: 12 seconds NUMBER OF FLUOROSCOPIC IMAGES: 2 FINDINGS: Left ureteral stent placement. Stent is in good position. IMPRESSION: Successful left ureteral stent placement. The above report was generated using voice recognition software. It may contain grammatical, syntax or spelling errors. Electronically signed by: Victor Manuel Carolina M.D. 05/26/2018 2:03 PM
[2018-05-26] MEDS: HEPARIN SOD 5,000 UNIT/0.5 ML VIAL SQ SCH ×2 (14:38→21:03)
--- NOTE | 2018-05-26 15:07 | Hospitalist Progress Note ---
Date of Service May 26, 2018 Assessment & Plan (1) Left ureteral stone: s/p ureteral cystoscopy and stent placement. Stone is retained. Will follow him as outpatient. Cont empiric abx pending intraoperative urine culture results. (2) Acute kidney injury superimposed on CKD: 2/2 obstructive uropathy. Baseline Cr: 1.3-1.4. -monitor renal functions after stent placement and ureteroscopy -avoid nephrotoxic agents when possible (3) Crohn's disease: On thioguanine (4) DVT prophylaxis: Heparin Full Code Dispo-just returned this evening from procedure. Doing well, appears to be tolerating PO. Cont IVf overnight. Renal function labs in am. Yecenia Fikn DO [facility] Subjective 72 yo M presented with L flank pain 2/2 L ureteral stone with ?infection and hydronephrosis. Found to have PETE on labwork. Underwent a ureteroscopy today with resolution of pain. tolerating PO, Pain is well controlled. Physical Exam Vital Signs (Past 24 Hours): Last Vital Signs Temp 36.8 C 05/26/18 14:45 Pulse 91 H 05/26/18 14:45 Resp 18 05/26/18 14:45 BP 137/85 05/26/18 14:45 Pulse Ox 96 05/26/18 14:45 CONSTITUTIONAL: WNWD, vitals as above, generally well-appearing EYES: normal conjuctivae, no scleral icterus ENT: MMM RESPIRATORY: clear to auscultation bilaterally, no crackles, rales or wheezes, normal respiratory effort CARDIOVASCULAR: regular rate and rhythm, S1 and 2 heard without murmurs, gallops or rubs, no JVD, no peripheral edema GASTROINTESTINAL: normal bowel sounds, soft, nontender, nondistended MUSCULOSKELETAL: strength 5/5 throughout, head is normocephalic and atraumatic SKIN: warm and dry NEUROLOGIC: CN 2-12 grossly intact. No gross focal deficits. PSYCHIATRIC: alert cooperative and oriented to person, place and time. Results & Data Laboratory Results Short CBC 05/25/18 05/26/18 Range/Units 19:10 06:05 WBC 11.09 H 11.70 H (4.8-10.8) K/uL Hgb 14.0 12.5 L (14.0-18.0) g/dL Hct 39.5 L 36.0 L (42-52) % Plt Count 194 160 (130-400) K/uL BMP 05/25/18 05/26/18 19:10 06:05 Sodium 135 L 136 Potassium 3.7 3.9 Chloride 103 104 Carbon Dioxide 23 24 BUN 18 17 Creatinine 2.24 H 2.15 H Glucose 140 H 107 H Calcium 8.9 8.2 L Liver Function 05/25/18 Range/Units 19:10 Total Bilirubin 1.0 (0.2-1) mg/dl AST 17 (15-37) U/L ALT 32 (12-78) U/L Alkaline Phosphatase 57 (45-117) U/L Albumin 3.6 (3.4-5.0) gm/dl Urine 05/25/18 Range/Units 20:55 Urine Color Yellow Urine Appearance Cloudy H (Clear) Urine pH 7.5 (4.5-7.5) Ur Specific [place] 1.016 (1.000-1.030) Urine Protein Negative (Negative) Urine Glucose (UA) Negative (Negative) Medications Administered Current Inpatient Medications Acetaminophen (Tylenol) 650 mg PO Q4H PRN PRN Reason: pain/fever Stop: 06/25/18 02:41 Allopurinol (Zyloprim) 300 mg PO DAILY [facility] Stop: 06/25/18 08:59 Last Admin: 05/26/18 10:28 Dose: Not Given Documented by: Docusate Sodium (Colace) 100 mg PO DAILY [facility] Stop: 06/24/18 23:33 Last Admin: 05/26/18 13:04 Dose: Not Given Documented by: Fluoxetine HCl (Prozac) 20 mg PO QAM [facility] Stop: 06/25/18 08:59 Last Admin: 05/26/18 10:27 Dose: Not Given Documented by: Heparin Sodium (Porcine) (Heparin Sodium (Porcine)) 5,000 units SQ Q8 [facility] Stop: 06/25/18 13:59 Last Admin: 05/26/18 14:38 Dose: Not Given Documented by: Hydromorphone HCl (Dilaudid) 0.5 mg IV Q3H PRN PRN Reason: Pain Stop: 06/08/18 23:33 Prochlorperazine 5 mg/ Syringe 5 mls @ 5 mls/min IV Q6H PRN PRN Reason: Nausea And Vomiting Stop: 06/24/18 21:50 Potassium Chloride/Sodium Chloride (Normal Saline W/20 Meq Kcl) 20 meq in 1,000 mls @ 60 mls/hr IV .[id number] [facility] Stop: 06/25/18 02:44 Last Infusion: 05/26/18 13:06 Dose: 0 mls/hr Documented by: Cefazolin Sodium (Ancef 2000mg) 2,000 mg in 15 mls @ 3.75 mls/min IV ONCE JAYY; Protocol Stop: 05/27/18 13:59 Last Admin: 05/26/18 13:40 Dose: 3.75 mls/min Documented by: Multivitamins (Multivitamin Tab) 1 tab PO DAILY JAYY Stop: 06/25/18 08:59 Last Admin: 05/26/18 13:04 Dose: Not Given Documented by: Oxycodone/Acetaminophen (Percocet 5mg/325mg) 1 tab PO Q4H PRN PRN Reason: Pain Stop: 06/08/18 23:33 Last Admin: 05/26/18 08:09 Dose: 1 tab Documented by: Polyethylene Glycol (Miralax Powder Packet) 17 gm PO DAILY PRN PRN Reason: Constipation Stop: 06/24/18 23:33 Polysaccharide Iron Complex (Niferex-150 W/Vit C Cap) 150 mg PO DAILY [facility] Stop: 06/25/18 08:59 Last Admin: 05/26/18 13:04 Dose: Not Given Documented by: Potassium Citrate (Urocit-K) 10 meq PO TID JAYY Stop: 06/25/18 08:59 Last Admin: 05/26/18 14:39 Dose: Not Given Documented by: Ranitidine HCl (Zantac) 150 mg PO DAILY JAYY Stop: 06/25/18 08:59 Last Admin: 05/26/18 10:27 Dose: Not Given Documented by: Thioguanine (Tabloid) 1 ea PO DAILY [facility] Stop: 06/25/18 13:29
--- NOTE | 2018-05-26 15:10 | Anesthesiology Progress Note ---
Date of Service May 26, 2018 Anesthesia Post Procedure Vital Signs Vital Signs: Temp Pulse Pulse Pulse Resp BP BP 05/26/18 14:45 36.8 C 91 H 18 137/85 05/26/18 14:35 36.8 C 91 H 18 134/81 05/26/18 14:25 90 20 131/81 05/26/18 14:15 91 H 20 127/80 05/26/18 14:06 37.0 C 98 H 20 140/82 05/26/18 07:17 37.1 C 95 H 18 132/82 05/25/18 23:40 37 C 96 H 16 165/87 H 05/25/18 23:20 37.9 C H 96 H 20 146/93 H 05/25/18 21:45 37.2 C 94 H 16 160/96 H 05/25/18 20:47 95 H 20 164/102 H 05/25/18 18:42 37.1 C 100 H 18 145/91 H Pulse Ox 05/26/18 14:45 96 05/26/18 14:35 95 05/26/18 14:25 94 05/26/18 14:15 94 05/26/18 14:06 97 05/26/18 07:17 94 05/25/18 23:40 95 05/25/18 23:20 92 05/25/18 21:45 93 05/25/18 20:47 96 05/25/18 18:42 99 Pain Intensity Flank: Pain Intensity: 3 Notes Mental Status: alert / awake / arousable and participated in evaluation Patient Amnestic to Procedure: Yes Nausea / Vomiting: adequately controlled Pain: adequately controlled Airway Patency, RR, SpO2: stable & adequate BP & HR: stable & adequate Hydration State: stable & adequate Anesthetic Complications: no major complications apparent
[2018-05-26] MEDS: [UNRECOGNIZED DRUG - OTHER] PO SCH (16:42)
[2018-05-27] MEDS: HEPARIN SOD 5,000 UNIT/0.5 ML VIAL SQ SCH ×3 (05:13→21:25)
[2018-05-27 06:08] LABS: Hematocrit (blood only) 35.3 % (42-52); Hemoglobin 12.2 g/dL (14.0-18.0); Mean Corpuscular Hgb Conc 34.6 g/dL (32-36); Mean Corpuscular Volume 93.6 fL (80-100); Mean Platelet Volume 11.8 fL (7.4-10.4); Platelet Count 195 K/uL (130-400); RDW Coefficient of Variation 14.3 % (11.5-14.5); RDW Standard Deviation 48.9 fL (36.4-46.3); Red Blood Count 3.77 M/uL (4.7-6.1); White Blood Count 13.57 K/uL (4.8-10.8)
[2018-05-27 07:03] LABS: BUN Creatinine Ratio 11.2 (10-20); Calcium 8.6 mg/dl (8.5-10.1); Creatinine Clr Calc Pharmacy 39.7 ml/min; Est GFR (African American) 42.6; Est GFR (Non-African American) 36.8
[2018-05-27] MEDS: OXYCODONE/ACETAMINOPHEN 5mg/325mg TAB PO PRN ×2 (08:41→12:48)
[2018-05-27] MEDS: [UNRECOGNIZED DRUG - OTHER] PO SCH (08:41)
[2018-05-27] MEDS: MULTIVITAMIN TAB PO SCH (08:43)
[2018-05-27] MEDS: IRON POLYSACCHARIDE COMPLEX 150 MG CAPSULE PO SCH (08:43)
[2018-05-27] MEDS: FLUOXETINE HCL 20 MG CAP PO SCH (08:44)
[2018-05-27] MEDS: POTASSIUM CITRATE 10 MEQ TAB PO SCH ×3 (08:44→21:24)
[2018-05-27] MEDS: ALLOPURINOL 300 MG TAB PO SCH (08:45)
[2018-05-27] MEDS ORDERED: [UNRECOGNIZED DRUG - OTHER] PO SCH (09:00)
--- NOTE | 2018-05-27 09:11 | Hospitalist Progress Note ---
Date of Service May 27, 2018 Assessment & Plan (1) Left ureteral stone: s/p ureteral cystoscopy and stent placement. Stone is retained. Will follow him as outpatient. Cont empiric abx pending intraoperative urine culture results. Urology gave pyridium for persistent pain this am. (2) Acute kidney injury superimposed on CKD: 2/2 obstructive uropathy. Baseline Cr: 1.3-1.4. Current creat is 1.8. Cont to trend in am. Of note labwork this am is only 12 hours post-op. -monitor renal functions after stent placement and ureteroscopy -avoid nephrotoxic agents when possible (3) Crohn's disease: On thioguanine (4) DVT prophylaxis: Heparin Full Code Dispo-continue hospitalization until renal function returns to normal and pain is controlled/resolved. Yecenia Fink DO [facility] Hospitalist Subjective Patient reports return of left lower quadrant pain similar to pre-cystoscopy pain. He is still ambulatory, however. Reports he had a bowel movement overnight. Tolerated breakfast. He remains afebrile. He denies any dysuria. Reportedly took Percocet and Dilaudid this morning for pain. Physical Exam Vital Signs (Past 24 Hours): Last Vital Signs Temp 36.6 C 05/27/18 07:10 Pulse 82 05/27/18 07:10 Resp 18 05/27/18 07:10 BP 135/81 05/27/18 07:10 Pulse Ox 94 05/27/18 07:10 CONSTITUTIONAL: WNWD, vitals as above, generally well-appearing EYES: normal conjuctivae, no scleral icterus ENT: MMM RESPIRATORY: clear to auscultation bilaterally, no crackles, rales or wheezes, normal respiratory effort CARDIOVASCULAR: regular rate and rhythm, S1 and 2 heard without murmurs, gallops or rubs, no JVD, no peripheral edema GASTROINTESTINAL: normal bowel sounds, soft, LLQ tenderness, nondistended, no CVA tenderness MUSCULOSKELETAL: strength 5/5 throughout, head is normocephalic and atraumatic SKIN: warm and dry NEUROLOGIC: CN 2-12 grossly intact. No gross focal deficits. PSYCHIATRIC: alert cooperative and oriented to person, place and time. Results & Data Laboratory Results Short CBC 05/27/18 Range/Units 05:23 WBC 13.57 H (4.8-10.8) K/uL Hgb 12.2 L (14.0-18.0) g/dL Hct 35.3 L (42-52) % Plt Count 195 (130-400) K/uL [facility] 05/27/18 05:23 Sodium 136 Potassium 4.0 Chloride 105 Carbon Dioxide 23 BUN 20 H Creatinine 1.79 H D Glucose 141 H Calcium 8.6 Medications Administered Current Inpatient Medications Acetaminophen (Tylenol) 650 mg PO Q4H PRN PRN Reason: pain/fever Stop: 06/25/18 02:41 Allopurinol (Zyloprim) 300 mg PO DAILY COUNTS INCLUDE 234 BEDS AT THE [facility] Stop: 06/25/18 08:59 Last Admin: 05/27/18 08:45 Dose: 300 mg Documented by: Docusate Sodium (Colace) 100 mg PO DAILY COUNTS INCLUDE 234 BEDS AT THE [facility] Stop: 06/24/18 23:33 Last Admin: 05/26/18 13:04 Dose: Not Given Documented by: Fluoxetine HCl (Prozac) 20 mg PO QAM COUNTS INCLUDE 234 BEDS AT THE [facility] Stop: 06/25/18 08:59 Last Admin: 05/27/18 08:44 Dose: 20 mg Documented by: Heparin Sodium (Porcine) (Heparin Sodium (Porcine)) 5,000 units SQ Q8 COUNTS INCLUDE 234 BEDS AT THE [facility] Stop: 06/25/18 13:59 Last Admin: 05/27/18 05:13 Dose: 5,000 units Documented by: Hydromorphone HCl (Dilaudid) 0.5 mg IV Q3H PRN PRN Reason: Pain Stop: 06/08/18 23:33 Ceftriaxone Sodium 1,000 mg/ (Dextrose) 50 mls @ 100 mls/hr IV Q24H COUNTS INCLUDE 234 BEDS AT THE [facility]; Protocol Stop: 06/06/18 09:14 Multivitamins (Multivitamin Tab) 1 tab PO DAILY COUNTS INCLUDE 234 BEDS AT THE [facility] Stop: 06/25/18 08:59 Last Admin: 05/27/18 08:43 Dose: 1 tab Documented by: Oxycodone/Acetaminophen (Percocet 5mg/325mg) 1 tab PO Q4H PRN PRN Reason: Pain Stop: 06/08/18 23:33 Last Admin: 05/27/18 08:41 Dose: 1 tab Documented by: Polyethylene Glycol (Miralax Powder Packet) 17 gm PO DAILY PRN PRN Reason: Constipation Stop: 06/24/18 23:33 Polysaccharide Iron Complex (Niferex-150 W/Vit C Cap) 150 mg PO DAILY COUNTS INCLUDE 234 BEDS AT THE [facility] Stop: 06/25/18 08:59 Last Admin: 05/27/18 08:43 Dose: 150 mg Documented by: Potassium Citrate (Urocit-K) 10 meq PO TID JAYY Stop: 06/25/18 08:59 Last Admin: 05/27/18 08:44 Dose: 10 meq Documented by: Ranitidine HCl (Zantac) 150 mg PO DAILY COUNTS INCLUDE 234 BEDS AT THE [facility] Stop: 06/25/18 08:59 Last Admin: 05/27/18 08:45 Dose: 150 mg Documented by: Thioguanine (Tabloid) 1 ea PO DAILY COUNTS INCLUDE 234 BEDS AT THE [facility] Stop: 06/25/18 13:29 Last Admin: 05/27/18 08:41 Dose: 1 ea Documented by:
[2018-05-27] MEDS: DOCUSATE SODIUM 100 MG CAP PO SCH (09:21)
[2018-05-27] MEDS ORDERED: cefTRIAXone SODIUM 1,000 MG in DEXTROSE 5% 50 ML IV SCH (10:00)
--- NOTE | 2018-05-27 12:27 | Anesthesiology Progress Note ---
Date of Service May 27, 2018 Anesthesia Post Procedure Vital Signs Vital Signs: Temp Pulse Pulse Pulse Resp BP Pulse Ox 05/27/18 07:10 36.6 C 82 18 135/81 94 05/27/18 02:46 36.6 C 82 16 141/78 H 93 05/26/18 23:00 36.8 C 92 H 16 127/78 93 05/26/18 18:45 36.8 C 95 H 20 148/86 H 94 05/26/18 16:57 36.7 C 95 H 18 147/93 H 92 05/26/18 15:58 36.8 C 95 H 20 157/94 H 95 05/26/18 15:30 36.8 C 94 H 20 153/88 H 93 05/26/18 15:00 36.8 C 99 H 18 148/85 H 94 05/26/18 14:45 36.8 C 91 H 18 137/85 96 05/26/18 14:35 36.8 C 91 H 18 134/81 95 05/26/18 14:25 90 20 131/81 94 05/26/18 14:15 91 H 20 127/80 94 05/26/18 14:06 37.0 C 98 H 20 140/82 97 Pain Intensity Flank: Pain Intensity: 3 Notes Mental Status: alert / awake / arousable and participated in evaluation Patient Amnestic to Procedure: Yes Nausea / Vomiting: adequately controlled Pain: adequately controlled (Pt states still having significant pain, to be discussed with urologist) Airway Patency, RR, SpO2: stable & adequate BP & HR: stable & adequate Hydration State: stable & adequate Anesthetic Complications: no major complications apparent and Pt Satisfied with anesthetic care
[2018-05-27] MEDS ORDERED: PHENAZOPYRIDINE HCL 200 MG TAB PO PRN (14:39)
[2018-05-27] MEDS ORDERED: KETOROLAC TROMETHAMINE 10 MG TABLET PO PRN (14:39)
--- NOTE | 2018-05-27 14:44 | Urology Progress Note ---
Date of Service May 27, 2018 Assessment & Plan (1) Left ureteral stone: POD s/p ureteral cystoscopy and stent placement Tolerating with some pain, likely reflux. Should stop over next 1-2 days. Patient very nervous about home. SARKIS improving. Labs improving. pain improving. Continue hydration. Monitor. Will likely be good for home when feeling better New PRN meds ordered. Plan to trial. (2) Acute kidney injury superimposed on CKD: monitoring. Subjective Sarkis with obs stone. Tolerated stent. Significant pain with valsalva. Likely reflux. Pain meds help. Poor ambulation. Has not been moving due to worry about pain. tolerating diet. Nervous about going home. No n/v No severe issues. no bleeding. no passage of material. Had large debris in urine. Tolerating PO and IV hydration. Has medications as needed for discomfort. Physical Exam Vital Signs (Past 24 Hours): Last Vital Signs Temp 36.6 C 05/27/18 07:10 Pulse 82 05/27/18 07:10 Resp 18 05/27/18 07:10 BP 135/81 05/27/18 07:10 Pulse Ox 94 05/27/18 07:10 Constitutional: WD/WN, vitals as above well developed and well nourished; not ill appearing Eyes: eyes not dysmorphic and no conjunctival abnormality ENMT: Ears: no hearing impairment and no external ear abnormality Neck: trachea midline; no tracheal deviation Respiratory: normal respiratory effort; no respiratory distress and does not use accessory muscles Cardiovascular: Rate/Rhythm: not tachycardic Chest (Breasts): Chest: normal inspection of chest Gastrointestinal (Abdomen): Inspection/Auscultation: abdomen normal to inspection Percussion/Palpation: abdomen soft; abdomen nontender and no guarding Musculoskeletal: Head/Neck/Chest: + head abnormal to inspection, normocephalic and head atraumatic Skin: no rashes and no lesions Neurologic: CN's II-XI intact bilaterally; not confused Psychiatric: Orientation: alert and oriented x 3 Genitourinary: + CVA tenderness Lymphatic: no lymphadenopathy
[2018-05-27] MEDS ORDERED: TAMSULOSIN HCL 0.4 MG CAP PO SCH (21:00)
[2018-05-28] MEDS: HEPARIN SOD 5,000 UNIT/0.5 ML VIAL SQ SCH (06:01)
[2018-05-28 07:22] LABS: Hematocrit (blood only) 34.6 % (42-52); Mean Corpuscular Hgb Conc 34.7 g/dL (32-36); Mean Corpuscular Volume 94.8 fL (80-100); Mean Platelet Volume 11.4 fL (7.4-10.4); Platelet Count 189 K/uL (130-400); RDW Coefficient of Variation 14.4 % (11.5-14.5); RDW Standard Deviation 50.1 fL (36.4-46.3); Red Blood Count 3.65 M/uL (4.7-6.1); White Blood Count 7.73 K/uL (4.8-10.8)
--- NOTE | 2018-05-28 07:44 | Anesthesiology Progress Note ---
Date of Service May 28, 2018 Anesthesia Post Procedure Vital Signs Vital Signs: Temp Pulse Resp BP Pulse Ox 05/27/18 23:13 36.8 C 66 19 128/85 94 05/27/18 14:52 36.4 C L 82 20 146/84 H 82 L Pain Intensity Flank: Pain Intensity: 0 Notes Mental Status: alert / awake / arousable Patient Amnestic to Procedure: Yes Nausea / Vomiting: adequately controlled Pain: adequately controlled Airway Patency, RR, SpO2: stable & adequate BP & HR: stable & adequate Hydration State: stable & adequate Anesthetic Complications: no major complications apparent
[2018-05-28 07:54] LABS: BUN Creatinine Ratio 15.9 (10-20); Calcium 8.1 mg/dl (8.5-10.1); Creatinine Clr Calc Pharmacy 43.4 ml/min; Est GFR (African American) 47.4; Est GFR (Non-African American) 40.9; Potassium 4.1 mmol/L (3.5-5.1)
--- NOTE | 2018-05-28 08:10 | Hospitalist Progress Note ---
Date of Service May 28, 2018 Assessment & Plan (1) Left ureteral stone: s/p ureteral cystoscopy and stent placement. Stone is retained. Will follow him as outpatient. Cont empiric abx pending intraoperative urine culture results. Urology gave pyridium for persistent pain this am. (2) Acute kidney injury superimposed on CKD: 2/2 obstructive uropathy. Baseline Cr: 1.3-1.4. Current creat is 1.8. Cont to trend in am. Of note labwork this am is only 12 hours post-op. -monitor renal functions after stent placement and ureteroscopy -avoid nephrotoxic agents when possible (3) Crohn's disease: On thioguanine (4) DVT prophylaxis: Heparin Full Code Dispo-continue hospitalization until renal function returns to normal and pain is controlled/resolved. Yecenia Fink DO [facility] Hospitalist Physical Exam Vital Signs (Past 24 Hours): Last Vital Signs Temp 36.5 C 05/28/18 07:55 Pulse 81 05/28/18 07:55 Resp 18 05/28/18 07:55 BP 132/90 05/28/18 07:55 Pulse Ox 93 05/28/18 07:55 Results & Data Laboratory Results Short CBC 05/28/18 Range/Units 06:37 WBC 7.73 (4.8-10.8) K/uL Hgb 12.0 L (14.0-18.0) g/dL Hct 34.6 L (42-52) % Plt Count 189 (130-400) K/uL BMP 05/28/18 06:37 Sodium 138 Potassium 4.1 Chloride 106 Carbon Dioxide 25 BUN 26 H Creatinine 1.64 H Glucose 95 Calcium 8.1 L Medications Administered Current Inpatient Medications Acetaminophen (Tylenol) 650 mg PO Q4H PRN PRN Reason: pain/fever Stop: 06/25/18 02:41 Allopurinol (Zyloprim) 300 mg PO DAILY [facility] Stop: 06/25/18 08:59 Last Admin: 05/27/18 08:45 Dose: 300 mg Documented by: Docusate Sodium (Colace) 100 mg PO DAILY [facility] Stop: 06/24/18 23:33 Last Admin: 05/27/18 09:21 Dose: 100 mg Documented by: [facility]) [facility] Stop: 06/25/18 08:59 Last Admin: 05/27/18 08:44 Dose: 20 mg Documented by: Heparin Sodium (Porcine) (Heparin Sodium (Porcine)) 5,000 units SQ Q8 JAYY Stop: 06/25/18 13:59 Last Admin: 05/28/18 06:01 Dose: 5,000 units Documented by: Hydromorphone HCl (Dilaudid) 0.5 mg IV Q3H PRN PRN Reason: Pain Stop: 06/08/18 23:33 Last Admin: 05/27/18 10:48 Dose: 0.5 mg Documented by: Ketorolac Tromethamine (Toradol) 10 mg PO Q6H PRN PRN Reason: Bladder pain Stop: 06/26/18 14:38 Last Admin: 05/27/18 16:36 Dose: 10 mg Documented by: Multivitamins (Multivitamin Tab) 1 tab PO DAILY JAYY Stop: 06/25/18 08:59 Last Admin: 05/27/18 08:43 Dose: 1 tab Documented by: Oxycodone/Acetaminophen (Percocet 5mg/325mg) 1 tab PO Q4H PRN PRN Reason: Pain Stop: 06/08/18 23:33 Last Admin: 05/27/18 12:48 Dose: 1 tab Documented by: Phenazopyridine HCl (Pyridium) 200 mg PO TID PRN PRN Reason: Bladder pain Stop: 06/26/18 14:38 Polyethylene Glycol (Miralax Powder Packet) 17 gm PO DAILY PRN PRN Reason: Constipation Stop: 06/24/18 23:33 Polysaccharide Iron Complex (Niferex-150 W/Vit C Cap) 150 mg PO DAILY JAYY Stop: 06/25/18 08:59 Last Admin: 05/27/18 08:43 Dose: 150 mg Documented by: Potassium Citrate (Urocit-K) 10 meq PO TID JAYY Stop: 06/25/18 08:59 Last Admin: 05/27/18 21:24 Dose: 10 meq Documented by: Ranitidine HCl (Zantac) 150 mg PO DAILY JAYY Stop: 06/25/18 08:59 Last Admin: 05/27/18 08:45 Dose: 150 mg Documented by: Tamsulosin HCl (Flomax) 0.4 mg PO HS JAYY Stop: 06/26/18 20:59 Last Admin: 05/27/18 21:24 Dose: 0.4 mg Documented by: Thioguanine (Tabloid) 1 ea PO DAILY JAYY Stop: 06/25/18 13:29 Last Admin: 05/27/18 08:41 Dose: 1 ea Documented by:
[2018-05-28] MEDS: FLUOXETINE HCL 20 MG CAP PO SCH (08:32)
[2018-05-28] MEDS: IRON POLYSACCHARIDE COMPLEX 150 MG CAPSULE PO SCH (08:32)
[2018-05-28] MEDS: MULTIVITAMIN TAB PO SCH (08:32)
[2018-05-28] MEDS: POTASSIUM CITRATE 10 MEQ TAB PO SCH ×2 (08:32→13:54)
[2018-05-28] MEDS: DOCUSATE SODIUM 100 MG CAP PO SCH (08:32)
[2018-05-28] MEDS: [UNRECOGNIZED DRUG - OTHER] PO SCH (08:32)
[2018-05-28] MEDS: ALLOPURINOL 300 MG TAB PO SCH (08:33)
--- NOTE | 2018-05-28 09:24 | Urology Progress Note ---
Date of Service May 28, 2018 Assessment & Plan (1) Left ureteral stone: POD #2 s/p L ureteral stent placement Feeling much better today, tolerating stent well Cr slowly improving. Discussed options for definitive stone management including ureteroscopy vs ESWL. Pt would like to pursue ESWL therapy as this has been successful in the past. Very large stone, may likely need repeat treatments. Pt verbalizes understanding. Okay to discharge home from standpoint with flomax and pain control. Please avoid NSAIDs as pt will plan for lithotripsy this Monday. Please send patient for [facility] Urology appointment today immediately following discharge for H&P/paperwork. Subjective 72yo M with large L ureteral stone and PETE, improving. POD #2 s/p L ureteral stone placement. Doing very well today. at bedside at time of evaluation. Tolerating PO Denies f/c/n/v. Voiding spontaneously. Denies hematuria/dysuria. Some flank pain/ reflux pain but much improved from yesterday. Review of Systems All systems reviewed & are unremarkable except as noted in HPI & below Physical Exam Vital Signs (Past 24 Hours): Last Vital Signs Temp 36.5 C 05/28/18 07:55 Pulse 81 05/28/18 07:55 Resp 18 05/28/18 07:55 BP 132/90 05/28/18 07:55 Pulse Ox 93 05/28/18 07:55 Physical Exam: A&Ox3 RRR Abd soft, nontender
[2018-05-28] MEDS ORDERED: SODIUM CHLORIDE 0.9% 1000ML 1,000 ML IV SCH (12:00)
--- NOTE | 2018-05-28 12:49 | Discharge Summary ---
Date of Service May 28, 2018 Admission HPI Per Admitting Provider Pt is 72 y/o M with PMH kidney stone with hx stent and lithotripsy, CKD III, chronic anemia, crohn's presented to ER with c/o L flank pain x 2 days. Today pain radiated to left lower abdomen. Patient states has been having intermittent nausea, vomited yesterday. Reports was taking oxycodone he had from previous kidney stone with a little relief however he ran out today. Patient reports last BM 2 days ago. He denies dysuria, hematuria. Max temp 99F. Denies diaphoresis, FIGUEROA, dizziness, syncope, vision changes, neck pain, CP, SOB, orthopnea, palpitations, cough, sore throat, choking, paresthesias, weakness, extremity weakness, extremity edema, rashes. Admission Exam Per Admitting Provider Temp 37.2 C 05/25/18 21:45 Pulse 94 H 05/25/18 21:45 Resp 16 05/25/18 21:45 BP 160/96 H 05/25/18 21:45 Pulse Ox 93 05/25/18 21:45 Physical Exam: General: mild distress secondary to flank pain, WDWN Head: normocephalic, atraumatic Eyes: PERRL, EOM's intact, conjunctiva non-injected, anicteric ENT: normal inspection external ears, nose, mucous membranes dry Neck: supple, trachea midline Lungs: clear, no respiratory distress, no wheezing/rhonchi/rales CV: RRR, no pretibial edema Abd: normal BS, +surgical scars, soft, +tender to palpation Left CVA, left flank, LLQ Ext: no cyanosis, no calf tenderness Neuro: A&O x 3, no focal deficits noted, normal affect Skin: warm, dry Principal Diagnosis Acute renal failure Obstructive Uropathy Left ureteral stone status post ureteral cystoscopy and stent placement CKD stage III Crohn's disease Discharge Data Allergies Allergy/AdvReac Type Severity Reaction Status Date / Time No Known Allergies Allergy Unverified 05/25/18 19:55 Consultations 05/25/18 21:16 ED Decision to Admit Stat 05/26/18 02:42 Consult Urology Routine Procedures Performed Operation Date: 05/26/18 12:30 Actual Procedures p Cystoscopy, Left Retrograde pyleogram, Left Ureteral Stent Insertion(Left) - Cj H. Milan II, DO Ordered Studies 05/25/18 19:31 CT abd pelvis wo con Stat 05/26/18 11:39 FL retrograde includes kub Routine Hospital Course (1) Left ureteral stone: (2) Acute kidney injury superimposed on CKD: (3) Crohn's disease: 72-year-old man presented to the emergency room with intermittent flank pain for 2 days secondary to ureteral colic. He has a history of nephrolithiasis. An abdomen pelvis CT without contrast revealed moderate left- sided hydronephrosis secondary to an 8 x 6 x 13 mm calculus about the proximal left ureter, just distal to the ureteropelvic junction at the level of the mid L3 vertebral body. Moderate associated left urothelial thickening was also seen possibly reactive versus secondary to infection. Additional findings included nonobstructing bilateral nephrolithiasis with large calculi noted about the left renal pelvis, a large left renal cyst about the inferior pole left kidney demonstrated mild acute internal hemorrhage, prostatomegaly with wall thickening suggestive of chronic bladder outlet obstruction, constipation, fatty liver. White blood cell count was 11, H&H of 14/39, BUN 18, creatinine 2.24 with a baseline 1.3-1.4. 1.3. Morphine, Zofran and IV fluids were administered in the ER and he was admitted to medicine. Urology was consulted and on 05/26 performed a cystoscopy, left retrograde pyelogram, left ureteral stent insertion. The stone was not able to be removed and he was transferred back to the floor. Perioperative Ancef was administered per protocol. Initial UA did not show evidence of infection, however, Rocephin was empirically continued pending intraoperative cultures, which ultimately returned negative. Antibiotics were not continued. He had persistent pain overnight requiring narcotic medication and ultimately was relieved with NSAIDs and Pyridium. Despite tolerating p.o. and staying hydrated, creatinine at time of discharge on 05/28 was still 1.6. It is noted that he received Toradol during this admission which may be contributing. However, persistent AK I secondary to prerenal azotemia versus ATN is considered. The patient was requesting to leave the hospital. Follow-up plan was established including lab work in 2 days and follow-up with primary care doc in 2 days. This appointment was set prior to discharge and the patient and his verbalized understanding with intent to comply. He is planned to follow-up with urology as outpatient at the end of the week for potential lithotripsy therapy to the retained stone. No NSAID therapy is recommended until further instructed by urology, and/or primary care physician. At time of discharge she was tolerating p.o., asymptomatic, ambulating and mentating at baseline and physical exam was unremarkable. He had no abdominal pain or CVA tenderness on physical exam. He was discharged in stable condition. Total Time Total Time Spent Total Time Spent (In Minutes): 60 Total Time Includes: Examination of the Patient, Discharge Planning, Medication Reconciliation, Communication With Other Providers and Other (set up follow-up ) Discharge Plan Discharge Items Patient Disposition: Home - Self-Care Reason For Visit: ARF,OBSTRUCTIVE UROPATHY Discharge Diagnosis: Acute renal failure Obstructive Uropathy Left ureteral stone status post ureteral cystoscopy and stent placement CKD stage III Crohn's disease Condition: Good Discharge Goals: Improve disease control and Therapeutic intervention Activity: Resume your previous activity Non-emergency contact: Primary Care Provider and Urologist Call non-emergency contact if: you have any medication questions, your symptoms worsen, your pain is not controlled, your pain is worsening, your pain is un usual for you, your pain is concerning for you and you have a fever Follow-up/Referrals: Cj Milan II, DO [Physician] - Ricky Bose [Primary Care Provider] - Diet: Regular Other Ambulatory Orders: Basic Metabolic Panel (Routine) Timeframe: 2 Days Location: Determined by Patient Ordered By: Yecenia Panchal Provider Instructions: Please take all medications as instructed on discharge list below. The PYRIDIUM is only as needed for bladder spasms. Please followup with Urology as instructed. Please avoid all NSAIDs (non-steroidal anti-inflammatory drugs) such as Motrin or Aleve until otherwise instructed by your physician. You may use PERCOCET or TYLENOL for pain as needed. Please do not exceed more than 3000mg of TYLENOL (acetaminophen) in a 24 hour period as this can be harmful to your liver. You have the following appointment scheduled: Date & Time 05/31/2018 11:00 AM Provider Ricky Bose III, MD Department [facility] Please obtain non-fasting bloodwork at least one hour prior to this appointment. You were given a prescription for labwork to take home at discharge for this purpose. The results should be followed by Dr. Bose. It was a pleasure taking care of you! Please call if you have any questions or problems. You can reach a [facility] hospitalist on duty at [facility] 24 hours a day by calling [phone]. Take care of yourself. Yecenia Fink, DO [facility] Hospitalist Prescriptions: New tamsulosin 0.4 mg Capsule 0.4 mg PO HS Qty: 30 RF: 0 oxycodone-acetaminophen [Percocet] 5-325 mg Tablet 1 tab PO Q4H PRN (Reason: severe pain) Qty: 10 RF: 0 phenazopyridine [Pyridium] 200 mg Tablet 200 mg PO TID PRN (Reason: bladder spasms) Qty: 10 RF: 0 Continued multivitamin Tablet 1 tab PO DAILY RF: 0 polysaccharide iron complex [iFerex 150] 150 mg iron Capsule 150 mg PO DAILY RF: 0 aspirin [Aspir-81] 81 mg Tablet,Delayed Release (Dr/Ec) 81 mg PO DAILY RF: 0 thioguanine 40 mg Tablet 40 mg PO DAILY RF: 0 potassium citrate [Urocit-K 10] 10 mEq (1,080 mg) Tablet Extended Release 10 meq PO TID RF: 0 cyanocobalamin (vitamin B-12) 1,000 mcg/mL Solution 1,000 mcg IM MONTHLY RF: 0 ranitidine HCl [Zantac] 150 mg tablet 150 mg PO DAILY RF: 0 allopurinol [Zyloprim] 300 mg tablet 300 mg PO DAILY RF: 0 fluoxetine [Prozac] 20 mg capsule 20 mg PO QAM RF: 0 cholecalciferol (vitamin D3) [Vitamin D3] 5,000 unit Tablet 20,000 unit PO DAILY RF: 0 omega [id number] oil [Fish Oil] 1,000 mg (120 mg-180 mg) Capsule 2 cap PO QAM RF: 0 Stand-Alone Forms: My [facility] Discharge Orders: Discharge Order (Routine); Ordered 05/28/18 Ordered By: Yecenia Fink Admission Data Admit Date/Time: 05/25/18 22:54 Attending Provider: Yecenia Fink Admit Provider: Silvano Hinton Primary Care Provider: Ricky Bose Other Providers: Silvano Hinton ; Cj Milan II Service: Surgical Services
[2018-05-28 13:24] LABS: Creatinine Urine Random 32.5 mg/dl
== END 2018-05-28 13:55 | disposition home or self-care (01) | DRG 660 ==
LOC: ED 18:37 → 3W 22:54

== ENCOUNTER 2022-12-28 19:17 | Inpatient (IN) ==
[2022-12-28] MEDS ORDERED: SODIUM CHLORIDE 0.9% 1,000 ML IV STA (19:39)
[2022-12-28] MEDS ORDERED: cefOXitin 2,000 MG/60 ML BAG IV STA (19:39)
--- NOTE | 2022-12-28 19:46 | Emergency Department Note ---
Impression & Plan Bowel perforation, Crohn's disease ED Provider Note NAME: HIMANSHU RUSSO II AGE: 77 SEX: M : 1945 ARRIVES VIA: Walk-In INFORMANT: Patient, ED PROVIDER(S): Camden Diaz DO CHIEF COMPLAINT: Perforated viscus HPI: The patient is a 77-year-old male who presented to the emergency department for an evaluation of perforated viscus. The patient had a colonoscopy done approximately week and a half ago. The patient had a follow-up CT today. He has a history of Crohn's disease. He was called and told to come to the emergency department immediately because of bowel perforation. ROS: See above HPI for pertinent positives & negatives. A total of 10 systems reviewed and were otherwise negative. PAST MEDICAL HISTORY: See Below PAST SURGICAL HISTORY: See Below FAMILY HISTORY: See Below SOCIAL HISTORY: See Below HOME MEDICATIONS: See Below ALLERGIES: See Below VITALS: See Below PHYSICAL EXAMINATION: GENERAL: Patient is awake alert in no acute distress patient is resting comfortably and showing no signs of anxiety EYES: The conjunctivae are clear. The pupils are round and reactive. EARS, NOSE, MOUTH AND THROAT: The nose is without any evidence of any deformity. NECK: The neck is nontender and supple. RESPIRATORY: Normal respiratory effort is noted there is no evidence of wheezing rhonchi or rales CARDIOVASCULAR: Regular rate and rhythm noted there no murmurs rubs or gallops normal S1 normal S2. GASTROINTESTINAL: The abdomen is soft. Abdomen is nontender. MUSCULOSKELETAL/EXTREMITIES: There is no evidence of gross deformity full range of motion is noted in the hips and shoulders. SKIN: There is no obvious evidence of any rash. There are no petechiae, pallor or cyanosis noted. NEUROLOGIC: Patient is awake alert and oriented x3 MEDICAL DECISION MAKING: The patient is a 77-year-old male who presented to the emergency department for an evaluation of abnormal CT of the abdomen and pelvis. The patient had a recent colonoscopy. He has a history of Crohn's disease. He was found to have a mass in his colon. Because of this mass he had a follow-up CAT scan scheduled for today. The patient was called by his GI doctor who ordered the scan and told to go directly to the emergency department for further evaluation. The patient was found to have microperforation. Initially discussed the patient's condition with the on-call GI doctor who recommended that we discussed the case with colorectal surgery at [facility]. I discussed the case with colorectal and at this time they feel the patient can be managed our facility with IV antibiotics. The patient was treated with IV fluids as well as IV antibiotics in emergency department. I discussed his condition with the general surgeon in our [facility] They have agreed to evaluate the patient for further management and disposition. Triage Nursing notes reviewed. Prior medical records reviewed Vital Signs: reviewed and remarkable for no significant abnormalities Differential diagnosis: Etiologies such as appendicitis, diverticulitis, obstruction, inflammatory bowel disease, renal colic, PUD, biliary pathology, pancreatitis, mesenteric ischemia, aortic pathology, infections, genitourinary, UTI, perforated viscus, as well as others were entertained. ER treatment provided: See below Diagnostics interpreted by me: ECG: EKG was obtained in the emergency department. My interpretation is normal sinus rhythm at 79 bpm. There is no ectopy. there is no acute ST segment abnormalities noted. This was compared to a tracing from May 28, 2018. No changes were noted. Cardiac Monitoring: An order was placed for continuous cardiac monitoring. The monitor shows a rate of 69 bpm with sinus rhythm. Laboratory studies: As stated above and show below. Imaging studies: See below. Radiographic imaging was reviewed by myself Consultation(s): I discussed this case with Dr Claire who was on for GI I discussed this case with Dr. Polanco who is on for colorectal surgery at [facility] I discussed this case with Dr. Marcum who is on-call for general surgery I discussed this case with Dr. Wolff who is on-call for [facility] ED COURSE: Procedures: none Critical Care: None Past Med/Surg History Medical History (Updated 12/28/22 @ 23:54 by Camden Diaz DO) Chronic anemia CKD (chronic kidney disease), stage III Crohn's disease Deep vein thrombosis 1999 LLE - AFTER TRAVEL - TREATED W/ AC X 6 MONTHS Gout Hearing deficit BL FIGUEROA History of skin cancer REMOVED FROM EAR Kidney stone Osteoarthritis Surgical History History of appendectomy History of bowel resection X 3 R/T CROHN'S DISEASE History of colonoscopy History of esophagogastroduodenoscopy (EGD) History of ileostomy History of reversal of ileostomy History of tonsillectomy Family History Other Prostate cancer Social History Smoking Status: Former smoker 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[employer]); Do You Dip or Chew Tobacco: No; Hx Alcohol Use: Yes Alcohol type: beer Hx Substance Use: No Preferred Language: Vietnamese Communication Ability: Effective Out Of School Hours Care Worker Required: No Beliefs That Will Affect Care: None Current Living Situation: Spouse Feels Safe at Home: Yes Assistive Devices: Glasses and Hearing Aid - Bilateral Allergies Allergies Allergy/AdvReac Type Severity Reaction Status Date / Time latex Allergy Redness of Verified 04/09/19 11:01 Skin mercaptopurine Allergy Unknown Verified 12/28/22 21:29 amoxicillin AdvReac SEVERE Verified 04/09/19 11:01 DIARRHEA Home Meds Home Medications Medication Instructions Recorded Confirmed cyanocobalamin (vitamin B-12) 1,000 mcg IM MONTHLY 05/25/18 12/28/22 1,000 mcg/mL injection solution fluoxetine 20 mg capsule (Prozac) 20 mg PO QAM 05/25/18 12/28/22 polysaccharide iron complex 150 mg 150 mg PO QAM 05/25/18 12/28/22 iron capsule (iFerex 150) potassium citrate 10 mEq (1,080 10 meq PO TID 05/25/18 12/28/22 mg) tablet,extended release (Urocit-K 10) allopurinol 300 mg tablet 300 mg PO DAILY 12/28/22 12/28/22 amlodipine 10 mg tablet 10 mg PO DAILY 12/28/22 12/28/22 aspirin 81 mg tablet,delayed 81 mg PO DAILY 12/28/22 12/28/22 release biotin 5 mg capsule 5 mg PO QAM 12/28/22 12/28/22 cholecalciferol (vitamin D3) 125 500 mcg PO QAM 12/28/22 12/28/22 mcg (5,000 unit) tablet (Vitamin D3) famotidine 20 mg tablet 20 mg PO DAILY 12/28/22 12/28/22 zveraqvy-xqypures-cddnk acid 400 1 tab PO DAILY 12/28/22 12/28/22 mcg-vit K 20 mcg-lycop 300 mcg tablet omega 4-jon-ssi-fish oil 1,000 mg 1 cap PO DAILY 12/28/22 12/28/22 (120 mg-180 mg) capsule (Fish Oil) ustekinumab 90 mg/mL subcutaneous 90 mg subcut .EVERY 8 WEEKS 12/28/22 12/28/22 syringe Results & Data (ED) Vital Signs Vital Signs - 24 hr 12/28/22 19:23 12/28/22 19:59 12/28/22 20:13 Temperature 36.5 C Temperature Source Skin Pulse Rate 100 H 90 Pulse Rate [Apical] 69 Pulse Rhythm [Apical] Regular Respiratory Rate 18 20 Blood Pressure 109/72 Blood Pressure [Left Arm] 138/78 Blood Pressure Mean 84 Blood Pressure Mean [Left Arm] 98 Pulse Oximetry 97 96 96 Oxygen Delivery Method Room Air Room Air Room Air Sepsis Recent Fever Within 48 Hours No Sepsis New/Unexplained Change in Mental Status No Sepsis Action Taken by Nursing No Action Required 12/28/22 20:08 Temperature Temperature Source Pulse Rate 70 Pulse Rate [Apical] Pulse Rhythm [Apical] Respiratory Rate Blood Pressure Blood Pressure [Left Arm] Blood Pressure Mean Blood Pressure Mean [Left Arm] Pulse Oximetry Oxygen Delivery Method Sepsis Recent Fever Within 48 Hours Sepsis New/Unexplained Change in Mental Status Sepsis Action Taken by Custodial Medications Current Medication List: was personally reviewed by me Laboratory Data Attestation: I reviewed the patient's lab results. 12/28/22 19:36 12/28/22 19:36 Lab Results 12/28/22 12/28/22 12/28/22 Range/Units 19:36 19:36 19:36 WBC 10.13 (4.8-10.8) K/ul RBC 4.64 L (4.70-6.10) M/uL Hgb 14.4 (14.0-18.0) g/dl Hct 42.4 (42.0-52.0) % MCV 91.4 (80.0-100.0) fL MCH 31.0 (25.0-34.0) pg MCHC 34.0 (32.0-36.0) g/dL RDW Std Deviation 44.8 (36.4-46.3) fL RDW Coeff of Edwina 13.3 (11.5-14.5) % Plt Count 230 (130-400) K/uL MPV 11.5 (9.4-12.4) fL Immature Gran % (Auto) 0.3 % Neut % (Auto) 72.4 % Lymph % (Auto) 19.2 % [place] % (Auto) 5.9 % Eos % (Auto) 1.7 % Baso % (Auto) 0.5 % Neut # (Auto) 7.34 H (1.40-6.50) K/uL Lymph # (Auto) 1.94 (1.20-3.40) K/uL [place] # (Auto) 0.60 H (0.11-0.59) K/uL Eos # (Auto) 0.17 (0.00-0.50) K/uL Baso # (Auto) 0.05 (0.00-0.20) K/uL Immature Gran # (Auto) 0.03 (0.01-0.20) K/uL PT (9.0-12.0) Seconds INR (0.9-1.1) APTT (21.0-31.0) Seconds PTT Ratio Sodium 141 (136-145) mmol/L Potassium 3.7 (3.5-5.1) mmol/L Chloride 104 (98-107) mmol/L Carbon Dioxide 28 (21-32) mmol/L Anion Gap 9 (3-11) BUN 21 (6-23) mg/dl Creatinine 1.63 H (0.6-1.4) mg/dl Est Cr Clr Drug Dosing 39.8 ml/min Est GFR ( Amer) 46.1 ml/min Est GFR (Non-Af Amer) 39.8 ml/min BUN/Creatinine Ratio 12.9 (10-20) Glucose 147 H (70-99(Fasting)) mg/dl Lactate (0.4-2.0) mmol/L Calcium 9.9 (8.6-10.3) mg/dl Magnesium 1.9 (1.7-2.4) mg/dl Total Bilirubin 0.6 (0.2-1.0) mg/dl AST 22 (13-39) U/L ALT 22 (7-52) U/L Alkaline Phosphatase 46 (34-104) U/L Troponin I High Sens 4.5 (0-20) pg/ml Total Protein 7.5 (6.0-8.3) gm/dl Albumin 4.5 (3.4-5.0) gm/dl Globulin 3.0 (2.5-4.0) gm/dl Albumin/Globulin Ratio 1.5 (0.9-2) Lipase 41 (11-82) U/L Urine Color Yellow Urine Appearance Clear (Clear) Urine pH 6.5 (4.5-7.5) Ur Specific [place] > 1.045 H (1.000-1.030) Urine Protein Negative (Negative) Urine Glucose (UA) Negative (Negative) Urine Ketones Negative (Negative) Urine Blood Negative (Negative) Urine Nitrite Negative (Negative) Urine Bilirubin Negative (Negative) Urine Urobilinogen Negative (Negative) Ur Leukocyte Esterase Negative (Negative) 12/28/22 12/28/22 12/28/22 Range/Units 19:36 20:39 22:46 WBC (4.8-10.8) K/ul RBC (4.70-6.10) M/uL Hgb (14.0-18.0) g/dl Hct (42.0-52.0) % MCV (80.0-100.0) fL MCH (25.0-34.0) pg MCHC (32.0-36.0) g/dL RDW Std Deviation (36.4-46.3) fL RDW Coeff of Edwina (11.5-14.5) % Plt Count (130-400) K/uL MPV (9.4-12.4) fL Immature Gran % (Auto) % Neut % (Auto) % Lymph % (Auto) % [place] % (Auto) % Eos % (Auto) % Baso % (Auto) % Neut # (Auto) (1.40-6.50) K/uL Lymph # (Auto) (1.20-3.40) K/uL [place] # (Auto) (0.11-0.59) K/uL Eos # (Auto) (0.00-0.50) K/uL Baso # (Auto) (0.00-0.20) K/uL Immature Gran # (Auto) (0.01-0.20) K/uL PT 11.5 (9.0-12.0) Seconds INR 1.1 (0.9-1.1) APTT 28.8 (21.0-31.0) Seconds PTT Ratio 1.0 Sodium (136-145) mmol/L Potassium (3.5-5.1) mmol/L Chloride (98-107) mmol/L Carbon Dioxide (21-32) mmol/L Anion Gap (3-11) BUN (6-23) mg/dl Creatinine (0.6-1.4) mg/dl Est Cr Clr Drug Dosing ml/min Est GFR ( Amer) ml/min Est GFR (Non-Af Amer) ml/min BUN/Creatinine Ratio (10-20) Glucose (70-99(Fasting)) mg/dl Lactate 2.1 H* 2.0 (0.4-2.0) mmol/L Calcium (8.6-10.3) mg/dl Magnesium (1.7-2.4) mg/dl Total Bilirubin (0.2-1.0) mg/dl AST (13-39) U/L ALT (7-52) U/L Alkaline Phosphatase (34-104) U/L Troponin I High Sens (0-20) pg/ml Total Protein (6.0-8.3) gm/dl Albumin (3.4-5.0) gm/dl Globulin (2.5-4.0) gm/dl Albumin/Globulin Ratio (0.9-2) Lipase (11-82) U/L Urine Color Urine Appearance (Clear) Urine pH (4.5-7.5) Ur Specific [place] (1.000-1.030) Urine Protein (Negative) Urine Glucose (UA) (Negative) Urine Ketones (Negative) Urine Blood (Negative) Urine Nitrite (Negative) Urine Bilirubin (Negative) Urine Urobilinogen (Negative) Ur Leukocyte Esterase (Negative) Administered Medications Lactated Ringer's (Lr) 1,000 mls @ 150 mls/hr IV .Q6H40M ONE Stop: 12/29/22 04:29 Last Admin: 12/28/22 22:42 Dose: 150 mls/hr Documented By: ACC Discontinued Medications Sodium Chloride (Nss) 1,000 mls @ 999 mls/hr IV .Q1H1M STA Stop: 12/28/22 20:39 Last Infusion: 12/28/22 22:47 Dose: 0 mls/hr Documented By: Admin: 12/28/22 19:52 Dose: 999 mls/hr Documented By: ACC Cefoxitin Sodium (Mefoxin) 2,000 mg in 60 mls @ 100 mls/hr IV NOW STA Stop: 12/28/22 20:14 Last Infusion: 12/28/22 22:47 Dose: 0 mls/hr Documented By: Admin: 12/28/22 19:52 Dose: 100 mls/hr Documented By: ACC Imaging Data Attestation: I personally reviewed and interpreted this imaging study as follows: My Impression: 1 view chest x-ray was obtained in the emergency department. My interpretation is no free air or definite infiltrate, this was compared to chest x-ray from May 26, 2018. No significant changes were noted. Final report pending. Discharge Plan Visit Data Chief Complaint: Referred by Doctor Stated Complaint: ABNORMAL SCAN ED Provider: Camden Diaz Discharge Problem: Bowel perforation, Crohn's disease Patient Disposition: Being Evaluated by Hospitalist Forms Stand Alone Forms: My [facility] Prescriptions Prescriptions: No Action polysaccharide iron complex [iFerex 150] 150 mg iron Capsule 150 mg PO QAM potassium citrate [Urocit-K 10] 10 mEq (1,080 mg) Tablet Extended Release 10 meq PO TID cyanocobalamin (vitamin B-12) 1,000 mcg/mL Solution 1,000 mcg IM MONTHLY fluoxetine [Prozac] 20 mg capsule 20 mg PO QAM allopurinol 300 mg tablet 300 mg PO DAILY famotidine 20 mg tablet 20 mg PO DAILY amlodipine 10 mg tablet 10 mg PO DAILY biotin 5 mg Capsule 5 mg PO QAM omega 3-wuj-yqa-fish oil [Fish Oil] 1,000 mg (120 mg-180 mg) Capsule 1 cap PO DAILY ustekinumab 90 mg/mL Syringe 90 mg SUBCUT .EVERY 8 WEEKS Men's Multivitamin 400-20-300 mcg Tablet 1 tab PO DAILY cholecalciferol (vitamin D3) [Vitamin D3] 125 mcg (5,000 unit) Tablet 500 mcg PO QAM Rx Instructions: 4 tablet dose aspirin 81 mg Tablet,Delayed Release (Dr/Ec) 81 mg PO DAILY Referrals Referrals: Ricky Bose MD [Primary Care Provider] -
[2022-12-28 20:01] LABS: Appearance Urine Clear (Clear); Bilirubin Urine Negative (Negative); Blood Urine Negative (Negative); Color Urine Yellow; Glucose Urine UA Negative (Negative); Ketones Urine Negative (Negative); Leukocyte Esterase Urine Negative (Negative); Nitrite Urine Negative (Negative); Protein Urine Negative (Negative); Specific Gravity Urine > 1.045 (1.000-1.030); Urobilinogen Urine Negative (Negative); pH Urine 6.5 (4.5-7.5)
[2022-12-28 20:10] LABS: Basophils # (auto) 0.05 K/uL (0.00-0.20); Basophils % (auto) 0.5 %; Eosinophils # (auto) 0.17 K/uL (0.00-0.50); Eosinophils % (auto) 1.7 %; Hematocrit (blood only) 42.4 % (42.0-52.0); Hemoglobin 14.4 g/dl (14.0-18.0); Immature Granulocytes # (auto) 0.03 K/uL (0.01-0.20); Immature Granulocytes % (auto) 0.3 %; Lymphocytes # (auto) 1.94 K/uL (1.20-3.40); Lymphocytes % (auto) 19.2 %; Mean Corpuscular Volume 91.4 fL (80.0-100.0); Mean Platelet Volume 11.5 fL (9.4-12.4); Monocytes % (auto) 5.9 %; Neutrophils # (auto) 7.34 K/uL (1.40-6.50); Neutrophils % (auto) 72.4 %; Platelet Count 230 K/uL (130-400); RDW Coefficient of Variation 13.3 % (11.5-14.5); RDW Standard Deviation 44.8 fL (36.4-46.3); Red Blood Count 4.64 M/uL (4.70-6.10); White Blood Count 10.13 K/ul (4.8-10.8)
[2022-12-28 20:21] LABS: Albumin Globulin Ratio 1.5 (0.9-2); Albumin Level 4.5 gm/dl (3.4-5.0); BUN Creatinine Ratio 12.9 (10-20); Bilirubin,Total 0.6 mg/dl (0.2-1.0); Calcium 9.9 mg/dl (8.6-10.3); Creatinine Clr Calc Pharmacy 39.8 ml/min; Est GFR (African American) 46.1 ml/min; Est GFR (Non-African American) 39.8 ml/min; Potassium 3.7 mmol/L (3.5-5.1); Total Protein 7.5 gm/dl (6.0-8.3)
[2022-12-28 20:27] LABS: Troponin I High Sensitivity 4.5 pg/ml (0-20)
[2022-12-28 20:38] LABS: INR 1.1 (0.9-1.1); Partial Thromboplastin Time 28.8 Seconds (21.0-31.0); Prothrombin Time 11.5 Seconds (9.0-12.0)
[2022-12-28] MEDS ORDERED: LACTATED RINGER'S 1,000 ML IV ONE (21:50)
[2022-12-28 23:22] LABS: Magnesium 1.9 mg/dl (1.7-2.4)
--- NOTE | 2022-12-28 23:27 | History & Physical Report ---
Date of Service December 28, 2022 Assessment & Plan (1) Bowel perforation: Plan: Recent outpatient colonoscopy History IBD status post surgery Patient asymptomatic and nontoxic. ARF on CKD hypertension, stable valvular heart disease (mild to moderate MR, mitral valve prolapse) Alcoholic cirrhosis, no overt decompensation Hyperglycemia rule out DM past tobacco/alcohol abuse GMF Strict n.p.o. Ertapenem General Surgery consult Re: Perforated bowel (ER provider already in touch with Dr. Marcum.) Monitor creatinine response to IVF Check hemoglobin A1c DVT prophylaxis. Heparin subcu Full code History of Present Illness Chief Complaint: Abnormal CAT scan Primary Care Provider: Ricky Bose MD History obtained from patient and records. Medical history significant for hypertension, valvular heart disease (mild to moderate MR, mitral valve prolapse TTE 2022), Crohn's disease status post surgery, CRI (baseline creatinine 1.4 ), alcoholic cirrhosis, urolithiasis, past tobacco/alcohol abuse. Last confinement May 2018 for ARF secondary to obstructive uropathy status post stent placement. Patient underwent outpatient colonoscopy 2 weeks ago at local [facility]. Active and chronic enteritis with ulcerative erosion noted. No granulomas or dysplasia identified. No unusual belly pain postprocedure. Outpatient CT abdomen pelvis requested by [facility] GI specialist done today at [facility]. 1. Long segment irregular wall thickening and enhancement involving the ascending colon, hepatic flexure and proximal transverse colon. Findings may represent a nonspecific colitis versus a mucosal lesion. 2. Trace extraluminal air compatible with perforated viscus, exact site of p erforation not visualized. 3. Findings suggestive of a partial right hemicolectomy with ileocolic anastomosis. There is chronic scarring with tethering within the abdominal right lower quadrant. No obstruction. 4. Age-indeterminate high-grade stenosis versus occlusion is noted involving a distal branch of the MCA within the abdominal right lower quadrant just proximal to mesenteric surgical clips. Patient directed to ER for evaluation. IV cefoxitin administered at the ER. Medical History as above Surgical History : Left quadriceps muscle surgery, bowel surgery Family History : Dementia, prostate cancer, TIA Personal/Social history : Past tobacco/alcohol abuse, retired [employer] employee Allergies Allergy/AdvReac Type Severity Reaction Status Date / Time latex Allergy Redness of Verified 04/09/19 11:01 Skin mercaptopurine Allergy Unknown Verified 12/28/22 21:29 amoxicillin AdvReac SEVERE Verified 04/09/19 11:01 DIARRHEA Home Medications Medication Instructions Recorded Confirmed Type cyanocobalamin (vitamin B-12) 1,000 mcg IM MONTHLY 05/25/18 12/28/22 History 1,000 mcg/mL injection solution fluoxetine 20 mg capsule (Prozac) 20 mg PO QAM 05/25/18 12/28/22 History polysaccharide iron complex 150 mg 150 mg PO QAM 05/25/18 12/28/22 History iron capsule (iFerex 150) potassium citrate 10 mEq (1,080 10 meq PO TID 05/25/18 12/28/22 History mg) tablet,extended release (Urocit-K 10) allopurinol 300 mg tablet 300 mg PO DAILY 12/28/22 12/28/22 History amlodipine 10 mg tablet 10 mg PO DAILY 12/28/22 12/28/22 History aspirin 81 mg tablet,delayed 81 mg PO DAILY 12/28/22 12/28/22 History release biotin 5 mg capsule 5 mg PO QAM 12/28/22 12/28/22 History cholecalciferol (vitamin D3) 125 500 mcg PO QAM 12/28/22 12/28/22 History mcg (5,000 unit) tablet (Vitamin D3) famotidine 20 mg tablet 20 mg PO DAILY 12/28/22 12/28/22 History khgemygi-rmnaenrh-cuzhh acid 400 1 tab PO DAILY 12/28/22 12/28/22 History mcg-vit K 20 mcg-lycop 300 mcg tablet omega 4-fwc-sel-fish oil 1,000 mg 1 cap PO DAILY 12/28/22 12/28/22 History (120 mg-180 mg) capsule (Fish Oil) ustekinumab 90 mg/mL subcutaneous 90 mg subcut .EVERY 8 WEEKS 12/28/22 12/28/22 History syringe Past Med/Surg History Medical History (Updated 12/28/22 @ 23:54 by Camden Diaz DO) Chronic anemia CKD (chronic kidney disease), stage III Crohn's disease Deep vein thrombosis 1999 LLE - AFTER TRAVEL - TREATED W/ AC X 6 MONTHS Gout Hearing deficit BL FIGUEROA History of skin cancer REMOVED FROM EAR Kidney stone Osteoarthritis Surgical History History of appendectomy History of bowel resection X 3 R/T CROHN'S DISEASE History of colonoscopy History of esophagogastroduodenoscopy (EGD) History of ileostomy History of reversal of ileostomy History of tonsillectomy Family History Other Prostate cancer Social History Smoking Status: Former smoker Smoking End Date: 38 years ago; 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[employer], 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[employer]); Do You Dip or Chew Tobacco: No; Hx Alcohol Use: Yes Alcohol type: beer Hx Substance Use: No Preferred Language: Kyrgyz Communication Ability: Effective Vault Teller Required: No Beliefs That Will Affect Care: None Current Living Situation: Spouse Feels Safe at Home: Yes Safety Concerns: Feels Safe At This Time Assistive Devices: Glasses and Hearing Aid - Bilateral Review of Systems Review of Systems: As per HPI, all other systems reviewed and negative Physical Exam Physical Exam: GENERAL: Comfortable, pleasant, no respiratory distress SKIN: Normal color, warm HEENT: Bespectacled, pink palpebral conjunctivae, no ptosis, moist buccal mucosa NECK : Supple, no tenderness CHEST : CTA, no tenderness HEART : RRR, no obvious murmurs ABDOMEN: Some distention, nontender EXTREMITIES : No LE swelling/tenderness, no other conspicuous deformities noted NEUROLOGIC : Coherent, no facial asymmetry, no other gross focality Results & Data Results & Data Vital Signs (Past 12 Hours) Vital Signs Temp Pulse Pulse Resp BP BP Pulse Ox 12/28/22 20:08 70 12/28/22 20:13 69 20 138/78 96 12/28/22 19:59 90 96 12/28/22 19:23 36.5 C 100 H 18 109/72 97 O2 Del Method 12/28/22 20:08 12/28/22 20:13 Room Air 12/28/22 19:59 Room Air 12/28/22 19:23 Room Air Laboratory Results Laboratory Results WBC 10.13 K/ul (4.8-10.8) 12/28/22 19:36 RBC 4.64 M/uL (4.70-6.10) L 12/28/22 19:36 Hgb 14.4 g/dl (14.0-18.0) 12/28/22 19:36 Hct 42.4 % (42.0-52.0) 12/28/22 19:36 MCV 91.4 fL (80.0-100.0) 12/28/22 19:36 MCH 31.0 pg (25.0-34.0) 12/28/22 19:36 MCHC 34.0 g/dL (32.0-36.0) 12/28/22 19:36 RDW Std Deviation 44.8 fL (36.4-46.3) 12/28/22 19:36 RDW Coeff of Edwina 13.3 % (11.5-14.5) 12/28/22 19:36 Plt Count 230 K/uL (130-400) 12/28/22 19:36 MPV 11.5 fL (9.4-12.4) 12/28/22 19:36 Immature Gran % (Auto) 0.3 % 12/28/22 19:36 Neut % (Auto) 72.4 % 12/28/22 19:36 Lymph % (Auto) 19.2 % 12/28/22 19:36 [place] % (Auto) 5.9 % 12/28/22 19:36 Eos % (Auto) 1.7 % 12/28/22 19:36 Baso % (Auto) 0.5 % 12/28/22 19:36 Neut # (Auto) 7.34 K/uL (1.40-6.50) H 12/28/22 19:36 Lymph # (Auto) 1.94 K/uL (1.20-3.40) 12/28/22 19:36 [place] # (Auto) 0.60 K/uL (0.11-0.59) H 12/28/22 19:36 Eos # (Auto) 0.17 K/uL (0.00-0.50) 12/28/22 19:36 Baso # (Auto) 0.05 K/uL (0.00-0.20) 12/28/22 19:36 Immature Gran # (Auto) 0.03 K/uL (0.01-0.20) 12/28/22 19:36 PT 11.5 Seconds (9.0-12.0) 12/28/22 19:36 INR 1.1 (0.9-1.1) 12/28/22 19:36 APTT 28.8 Seconds (21.0-31.0) 12/28/22 19:36 PTT Ratio 1.0 12/28/22 19:36 Sodium 141 mmol/L (136-145) 12/28/22 19:36 Potassium 3.7 mmol/L (3.5-5.1) 12/28/22 19:36 Chloride 104 mmol/L (98-107) 12/28/22 19:36 Carbon Dioxide 28 mmol/L (21-32) 12/28/22 19:36 Anion Gap 9 (3-11) 12/28/22 19:36 BUN 21 mg/dl (6-23) 12/28/22 19:36 Creatinine 1.63 mg/dl (0.6-1.4) H 12/28/22 19:36 Est Cr Clr Drug Dosing 39.8 ml/min 12/28/22 19:36 Est GFR ( Amer) 46.1 ml/min 12/28/22 19:36 Est GFR (Non-Af Amer) 39.8 ml/min 12/28/22 19:36 BUN/Creatinine Ratio 12.9 (10-20) 12/28/22 19:36 Glucose 147 mg/dl (70-99(Fasting)) H 12/28/22 19:36 Lactate 2.1 mmol/L (0.4-2.0) H* 12/28/22 20:39 Calcium 9.9 mg/dl (8.6-10.3) 12/28/22 19:36 Magnesium 1.9 mg/dl (1.7-2.4) 12/28/22 19:36 Total Bilirubin 0.6 mg/dl (0.2-1.0) 12/28/22 19:36 AST 22 U/L (13-39) 12/28/22 19:36 ALT 22 U/L (7-52) 12/28/22 19:36 Alkaline Phosphatase 46 U/L (34-104) 12/28/22 19:36 Troponin I High Sens 4.5 pg/ml (0-20) 12/28/22 19:36 Total Protein 7.5 gm/dl (6.0-8.3) 12/28/22 19:36 Albumin 4.5 gm/dl (3.4-5.0) 12/28/22 19:36 Globulin 3.0 gm/dl (2.5-4.0) 12/28/22 19:36 Albumin/Globulin Ratio 1.5 (0.9-2) 12/28/22 19:36 Lipase 41 U/L (11-82) 12/28/22 19:36 Urine Color Yellow 12/28/22 19:36 Urine Appearance Clear (Clear) 12/28/22 19:36 Urine pH 6.5 (4.5-7.5) 12/28/22 19:36 Ur Specific [place] > 1.045 (1.000-1.030) H 12/28/22 19:36 Urine Protein Negative (Negative) 12/28/22 19:36 Urine Glucose (UA) Negative (Negative) 12/28/22 19:36 Urine Ketones Negative (Negative) 12/28/22 19:36 Urine Blood Negative (Negative) 12/28/22 19:36 Urine Nitrite Negative (Negative) 12/28/22 19:36 Urine Bilirubin Negative (Negative) 12/28/22 19:36 Urine Urobilinogen Negative (Negative) 12/28/22 19:36 Ur Leukocyte Esterase Negative (Negative) 12/28/22 19:36
[2022-12-28] MEDS ORDERED: ACETAMINOPHEN 1,000 MG/100 ML VIAL IV PRN ×2 (23:31→23:43)
[2022-12-28] MEDS ORDERED: HYDROmorphone INJ 0.5 MG/0.5 ML SYR IV PRN (23:31)
[2022-12-28] MEDS ORDERED: PROMETHAZINE HCL 6.25 MG in SODIUM CHLORIDE 0.9% 50 ML IV PRN (23:31)
[2022-12-29] MEDS: ERTAPENEM SODIUM 1,000 MG in SYRINGE 0 ML IV SCH (02:08)
[2022-12-29] MEDS: LACTATED RINGER'S 1,000 ML IV SCH ×3 (05:33→17:26)
[2022-12-29] MEDS: HEPARIN SOD 5,000 UNIT/0.5 ML VIAL SQ SCH ×3 (05:38→22:02)
[2022-12-29 06:00] LABS: Basophils # (auto) 0.05 K/uL (0.00-0.20); Basophils % (auto) 0.7 %; Eosinophils # (auto) 0.25 K/uL (0.00-0.50); Eosinophils % (auto) 3.3 %; Hematocrit (blood only) 37.9 % (42.0-52.0); Immature Granulocytes # (auto) 0.02 K/uL (0.01-0.20); Immature Granulocytes % (auto) 0.3 %; Lymphocytes % (auto) 23.8 %; Mean Corpuscular Hemoglobin 31.6 pg (25.0-34.0); Mean Corpuscular Hgb Conc 34.3 g/dL (32.0-36.0); Mean Corpuscular Volume 92.2 fL (80.0-100.0); Mean Platelet Volume 11.2 fL (9.4-12.4); Monocytes # (auto) 0.68 K/uL (0.11-0.59); Neutrophils # (auto) 4.75 K/uL (1.40-6.50); Neutrophils % (auto) 62.9 %; Platelet Count 171 K/uL (130-400); RDW Coefficient of Variation 13.3 % (11.5-14.5); RDW Standard Deviation 45.1 fL (36.4-46.3); Red Blood Count 4.11 M/uL (4.70-6.10); White Blood Count 7.55 K/ul (4.8-10.8)
[2022-12-29 06:16] LABS: BUN Creatinine Ratio 16.1 (10-20); Calcium 8.6 mg/dl (8.6-10.3); Creatinine Clr Calc Pharmacy 52.3 ml/min; Est GFR (African American) 64.1 ml/min; Est GFR (Non-African American) 55.3 ml/min; Potassium 3.9 mmol/L (3.5-5.1)
--- NOTE | 2022-12-29 06:40 | XRay Report ---
XR chest 1V portable HISTORY: 77 years-old Male renal failure acute shortness of breath with renal failure COMPARISON: 05/04/2021 TECHNIQUE: AP view of the chest FINDINGS: Cardiac mediastinal and hilar silhouettes are within normal limits. No pneumothorax, pleural effusion , airspace consolidation or pulmonary edema. Bones appear grossly intact. IMPRESSION: No acute process. ACT 112: Negative or not required by law. The above report was generated using voice recognition software. It may contain grammatical, syntax o r spelling errors. Electronically signed by: Curtis Avila M.D. 12/29/2022 6:39 AM
[2022-12-29 07:38] LABS: Estimated Average Glucose 114 mg/dl; Hemoglobin A1C 5.6 % (4.5-5.6)
[2022-12-29] MEDS: FAMOTIDINE 20 MG in SYRINGE 3 ML IV SCH (09:28)
--- NOTE | 2022-12-29 11:34 | Surgery Consultation ---
Date of Consultation December 29, 2022 Assessment & Plan (1) Bowel perforation: Assessment: Patient is a 77 years old gentleman who had a colonoscopy 2 weeks ago. Patient had a CT scan finding possible bowel perforation. Patient denies abdominal pain. no fever, no nausea, no vomiting. plan: Based on patient has no symptoms, no surgical indication now. Conservative treatment. Possible start clear diet tomorrow. Patient understands, he agreed with the plan. I answered all questions. We will follow- up. History of Present Illness Reason for Consultation: perforated viscus Requesting Physician: Penny Ch MD Attending Physician: Penny Ch MD History of Present Illness CC: CT scan finding perforated viscus HPI: Patient is a 77 years old gentleman with a significant past medical history Crohn's disease with a bowel resection, chronic anemia, chronic kidney disease, kidney stone. Patient had the colonoscopy at outside the facility 2 weeks ago. Patient had a CT scan 12/28/2022IMPRESSION: 1. Long segment irregular wall thickening and enhancement involving the ascending colon, hepatic flexure and proximal transverse colon. Findings may represent a nonspecific colitis versus a mucosal lesion. 2. Trace extraluminal air compatible with perforated viscus, exact site of perforation not visualized. 3. Findings suggestive of a partial right hemicolectomy with ileocolic anastomosis. There is chronic scarring with tethering within the abdominal right lower quadrant. No obstruction. 4. Age-indeterminate high-grade stenosis versus occlusion is noted involving a distal branch of the MCA within the abdominal right lower quadrant just proximal to mesenteric surgical clips. Patient was to call to come to the ER for evaluation possible perforated viscus. Patient denies abdominal pain, no nausea, no vomiting, no fever. Allergies Allergy/AdvReac Type Severity Reaction Status Date / Time latex Allergy Redness of Verified 04/09/19 11:01 Skin mercaptopurine Allergy Unknown Verified 12/28/22 21:29 amoxicillin AdvReac SEVERE Verified 04/09/19 11:01 DIARRHEA Home Medications Medication Instructions Recorded Confirmed Type cyanocobalamin (vitamin B-12) 1,000 mcg IM MONTHLY 05/25/18 12/28/22 History 1,000 mcg/mL injection solution fluoxetine 20 mg capsule (Prozac) 20 mg PO QAM 05/25/18 12/28/22 History polysaccharide iron complex 150 mg 150 mg PO QAM 05/25/18 12/28/22 History iron capsule (iFerex 150) potassium citrate 10 mEq (1,080 10 meq PO TID 05/25/18 12/28/22 History mg) tablet,extended release (Urocit-K 10) allopurinol 300 mg tablet 300 mg PO DAILY 12/28/22 12/28/22 History amlodipine 10 mg tablet 10 mg PO DAILY 12/28/22 12/28/22 History aspirin 81 mg tablet,delayed 81 mg PO DAILY 12/28/22 12/28/22 History release biotin 5 mg capsule 5 mg PO QAM 12/28/22 12/28/22 History cholecalciferol (vitamin D3) 125 500 mcg PO QAM 12/28/22 12/28/22 History mcg (5,000 unit) tablet (Vitamin D3) famotidine 20 mg tablet 20 mg PO DAILY 12/28/22 12/28/22 History qjxfnuwi-ukvntvpb-tinxv acid 400 1 tab PO DAILY 12/28/22 12/28/22 History mcg-vit K 20 mcg-lycop 300 mcg tablet omega 8-paf-roe-fish oil 1,000 mg 1 cap PO DAILY 12/28/22 12/28/22 History (120 mg-180 mg) capsule (Fish Oil) ustekinumab 90 mg/mL subcutaneous 90 mg subcut .EVERY 8 WEEKS 12/28/22 12/28/22 History syringe Patient History Medical History (Updated 12/28/22 @ 23:54 by Camden Diaz DO) Chronic anemia CKD (chronic kidney disease), stage III Crohn's disease Deep vein thrombosis 1999 LLE - AFTER TRAVEL - TREATED W/ AC X 6 MONTHS Gout Hearing deficit BL FIGUEROA History of skin cancer REMOVED FROM EAR Kidney stone Osteoarthritis Surgical History History of appendectomy History of bowel resection X 3 R/T CROHN'S DISEASE History of colonoscopy History of esophagogastroduodenoscopy (EGD) History of ileostomy History of reversal of ileostomy History of tonsillectomy Family History Other Prostate cancer Social History Smoking Status: Former smoker Smoking End Date: 38 years ago; 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, 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[employer]); Do You Dip or Chew Tobacco: No; Hx Alcohol Use: Yes Alcohol type: beer Hx Substance Use: No Preferred Language: Slovak Communication Ability: Effective 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 Kidney stone) Neurologic: as per Subjective / HPI Psychiatric: as per Subjective / HPI Endocrine: as per Subjective / HPI Hematologic / Lymphatic: as per Subjective / HPI Physical Exam 2 Constitutional: WD/WN, vitals as above No distress Eyes: PERRL, conjunctivae normal, anicteric sclerae Neck: trachea midline, no thyromegaly Respiratory: normal respiratory effort, lungs clear to auscultation Cardiovascular: RRR, no murmur, no edema Gastrointestinal (Abdomen): soft, Nt, Nd, BS +, low middle line incision. Neurologic: patellar DTR's 2+ bilat, sensation intact Psychiatric: A+Ox3, euthymic affect Results & Data Vital Signs (Past 12 Hours) Vital Signs Temp Pulse Pulse Resp BP Pulse Ox O2 Del Method 12/29/22 08:01 36.5 C 67 18 134/77 94 Room Air 12/29/22 01:24 Room Air 12/29/22 01:24 36.5 C 72 18 148/77 H 93 Room Air 12/29/22 01:21 36.5 C 72 18 148/77 H 93 Room Air 12/29/22 00:00 68 12/29/22 00:20 64 13 94 12/29/22 00:10 65 13 95 12/29/22 00:00 71 94 12/28/22 23:50 80 15 95 12/28/22 23:40 70 23 92 Laboratory Results Abnormal lab results 12/28/22 12/28/22 12/28/22 Range/Units 19:36 19:36 19:36 RBC 4.64 L (4.70-6.10) M/uL Hgb (14.0-18.0) g/dl Hct (42.0-52.0) % Neut # (Auto) 7.34 H (1.40-6.50) K/uL [place] # (Auto) 0.60 H (0.11-0.59) K/uL Chloride (98-107) mmol/L Creatinine 1.63 H (0.6-1.4) mg/dl Glucose 147 H (70-99(Fasting)) mg/dl Lactate (0.4-2.0) mmol/L Ur Specific [place] > 1.045 H (1.000-1.030) 12/28/22 12/29/22 12/29/22 Range/Units 20:39 05:28 05:28 RBC 4.11 L (4.70-6.10) M/uL Hgb 13.0 L (14.0-18.0) g/dl Hct 37.9 L (42.0-52.0) % Neut # (Auto) (1.40-6.50) K/uL [place] # (Auto) 0.68 H (0.11-0.59) K/uL Chloride 111 H (98-107) mmol/L Creatinine (0.6-1.4) mg/dl Glucose 126 H (70-99(Fasting)) mg/dl Lactate 2.1 H* (0.4-2.0) mmol/L Ur Specific [place] (1.000-1.030) Diagnostic Findings CT angio abdomen pelvis w con CLINICAL HISTORY: 77 years-old Male with VASCULAR DISORDER OF INTESTINE ischemic bowel with Crohn's disease COMPARISON STUDY: 07/08/2018 TECHNIQUE: Following the IV administration of 119 cc of Optiray, CT angiogram of the abdomen and pelvis was performed from the lung bases the proximal femora. Images are reviewed in the axial, sagittal, and coronal planes. 3-D MIPS images are created and assessed. All measurements were obtained according to NASCET criteria. IV contrast was administered without complication. A dose lowering technique was utilized adhering to the principles of ALARA. CT DOSE: 1114.5 mGy.cm FINDINGS: CTA: Moderate atherosclerosis of the abdominal aorta without abdominal aortic aneurysm or dissection. Patency of the iliac arteries. The celiac trunk, superior and inferior mesenteric arteries are patent. There is areas of high- grade stenosis/occlusion involving distal branches of the MCA within the abdominal right lower quadrant on image 164 just proximal to adjacent surgical clips. The remaining branches appear generally patent. Patent renal arteries without high-grade stenosis. CT ABDOMEN/PELVIS: Clear lung bases. Motion degraded exam. Unremarkable spleen, pancreas, adrenal glands and distended gallbladder. There are a few scattered cysts within the liver measuring up to 9 mm. Bilateral hypodensities within the kidneys are identified suggestive of cysts measuring up to 4.5 cm on the right. No definite renal calculi identified. Prostatomegaly. Bladder wall thickening or distention. No lymphadenopathy. There is no bowel obstruction. There is irregular wall thickening noted throughout the ascending colon with extension to the hepatic flexure and proximal transverse colon. There is mild adjacent pericolonic stranding with a few foci of extraluminal air on image 164. Postoperative changes are again noted suggestive of partial right hemicolectomy with ileocolic anastomosis. Chronic right lower quadrant tethering. There is suggestion of prior colostomy takedown with a few small fat filled anterior abdominal wall hernias. Unremarkable soft tissues. No acute fracture identified. IMPRESSION: 1. Long segment irregular wall thickening and enhancement involving the ascending colon, hepatic flexure and proximal transverse colon. Findings may represent a nonspecific colitis versus a mucosal lesion. 2. Trace extraluminal air compatible with perforated viscus, exact site of perforation not visualized. 3. Findings suggestive of a partial right hemicolectomy with ileocolic anastomosis. There is chronic scarring with tethering within the abdominal right lower quadrant. No obstruction. 4. Age-indeterminate high-grade stenosis versus occlusion is noted involving a distal branch of the MCA within the abdominal right lower quadrant just proximal to mesenteric surgical clips. 5. Additional findings as above.
--- NOTE | 2022-12-29 14:13 | Hospitalist Progress Note ---
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 Patient did not have any postprocedure complications or abdominal pain. CT of the abdomen and pelvis was done on the day of arrival which showed findings suggestive of perforated viscus. He is being managed for the following: Bowel perforation Recent outpatient colonoscopy CT abdomen pelvis on the day of arrival with findings suggestive of perforated viscus, exact site of perforation not visualized. There was trace extraluminal air present. Patient with no abdominal pain, is n.p.o. General surgery on board, conservative management, possible clear liquid diet tomorrow. Ertapenem started, will continue. c/w IVF. Pain Mx, Nausea control. ARF on CKD: Status post IV fluid. Resolved. Other chronic medical conditions: Continue with/resume home meds as and when able. History IBD status post surgery: Patient asymptomatic and nontoxic. Hypertension, stable Alcoholic cirrhosis, no overt decompensation Hyperglycemia rule out DM - ruled out. past tobacco/alcohol abuse DVT prophylaxis. Heparin subcu Full code Time spent evaluating patient, direct bedside care, chart review, placing orders, interpretation of diagnostic studies, discussion with consultants, patient, and family members, as well as other required patient management activities is __60__ minutes. Please note the above document was generated using voice recognition software. It may contain grammatical, syntax or spelling errors. Any formal questions or concerns about the content, text or information contained within the body of this dictation should be directly addressed to the undersigned for clarification. Admission and Anticipated Discharge Date Admission Date: December 28, 2022 Subjective Patient was seen and examined at bedside. Patient was lying in bed, on room air, resting comfortably, not in any acute distress. Patient's at bedside. Patient reports no belly pain, denies any abdominal distention than his b aseline, is n.p.o., denies any new acute event overnight. Patient denies any flulike illness or febrile illness, denies any headache or dizziness or chest pain or palpitation. Physical Exam Physical Exam: GENERAL: Alert and oriented x3. NAD, on RA. HEENT: No pallor, no icterus. Pupils equal, round and reactive to light. Oral mucosa moist. NECK: No JVD, no neck masses. HEART: S1 and S2 heard. Regular rate and rhythm. No murmur, no gallop. RESPIRATORY SYSTEM: Normal AP diameter. No accessory muscle use. No wheezing, no crackles. ABDOMEN: Soft, bowel sounds present, nontender, no distention compared to his baseline per pt. CENTRAL NERVOUS SYSTEM: No facial droop. Speech is clear. Obeys simple commands. Moves extremities. EXTREMITIES: No edema, no erythema seen. Results & Data Results & Data Vital Signs (Past 12 Hours) Vital Signs Temp Pulse Resp BP Pulse Ox O2 Del Method 12/29/22 08:01 36.5 C 67 18 134/77 94 Room Air
--- NOTE | 2022-12-29 14:55 | Electrocardiogram Report ---
Test Reason : Blood Pressure : / mmHG Vent. Rate : 079 BPM Atrial Rate : 079 BPM P-R Int : 192 ms QRS Dur : 084 ms QT Int : 392 ms P-R-T Axes : 052 -02 039 degrees QTc Int : 449 ms Normal sinus rhythm Low voltage QRS Abnormal ECG When compared with ECG of 28-MAY-2018 09:59, SC interval has decreased Confirmed by Rahul De Los Santos ([id number]) on 12/29/2022 2:54:36 PM Referred By: Carri Guzman Confirmed By:Eliot De Los Santos
[2022-12-30] MEDS: ERTAPENEM SODIUM 1,000 MG in SYRINGE 0 ML IV SCH (01:16)
[2022-12-30] MEDS: LACTATED RINGER'S 1,000 ML IV SCH (05:58)
[2022-12-30] MEDS: HEPARIN SOD 5,000 UNIT/0.5 ML VIAL SQ SCH ×2 (05:58→14:17)
[2022-12-30] MEDS: FAMOTIDINE 20 MG in SYRINGE 3 ML IV SCH (08:59)
[2022-12-30 09:57] LABS: Hematocrit (blood only) 39.6 % (42.0-52.0); Hemoglobin 13.9 g/dl (14.0-18.0); Mean Corpuscular Hemoglobin 31.7 pg (25.0-34.0); Mean Corpuscular Hgb Conc 35.1 g/dL (32.0-36.0); Mean Corpuscular Volume 90.2 fL (80.0-100.0); Mean Platelet Volume 11.3 fL (9.4-12.4); Platelet Count 178 K/uL (130-400); RDW Coefficient of Variation 13.5 % (11.5-14.5); RDW Standard Deviation 45.1 fL (36.4-46.3); Red Blood Count 4.39 M/uL (4.70-6.10); White Blood Count 6.95 K/ul (4.8-10.8)
[2022-12-30 10:06] LABS: BUN Creatinine Ratio 13.2 (10-20); Calcium 8.6 mg/dl (8.6-10.3); Creatinine Clr Calc Pharmacy 56.9 ml/min; Est GFR (Non-African American) 61.3 ml/min; Magnesium 1.9 mg/dl (1.7-2.4); Phosphorus 3.4 mg/dl (2.5-4.9); Potassium 3.7 mmol/L (3.5-5.1)
--- NOTE | 2022-12-30 13:06 | Surgery Progress Note ---
Date of Service December 30, 2022 Assessment & Plan (1) Bowel perforation: Plan: 77 year old gentleman who had a colonoscopy 2 weeks ago. Patient had a CT scan finding possible bowel perforation. Patient denies abdominal pain. no fever, no nausea, no vomiting. avss abdominal examination completely benign no pain, n,v Plan: Clear liquids if tolerates okay from surgical standpoint for discharge advance diet to full liquids tomorrow then soft diet Monday continue medical management Dr. Cuenca has seen patient and present during my examination and agrees with above. Admission and Anticipated Discharge Date Admission Date: December 28, 2022 Subjective feeling good no abdominal pain no n,v Physical Exam Constitutional: WD/WN, vitals as above no acute distress and not ill appearing Gastrointestinal (Abdomen): Inspection/Auscultation: abdomen normal to inspection; abdomen not distended Percussion/Palpation: abdomen soft; abdomen nontender, no guarding, abdomen not rigid and abdomen not firm Skin: no rashes, warm and dry Psychiatric: A+Ox3, euthymic affect Results & Data Vital Signs (Past 12 Hours) Vital Signs Temp Pulse Resp BP Pulse Ox O2 Del Method 12/30/22 06:23 36.3 C L 71 16 129/82 96 Room Air Laboratory Results 12/30/22 12/30/22 Range/Units 09:13 09:13 WBC 6.95 (4.8-10.8) K/ul RBC 4.39 L (4.70-6.10) M/uL Hgb 13.9 L (14.0-18.0) g/dl Hct 39.6 L (42.0-52.0) % MCV 90.2 (80.0-100.0) fL MCH 31.7 (25.0-34.0) pg MCHC 35.1 (32.0-36.0) g/dL RDW Std Deviation 45.1 (36.4-46.3) fL RDW Coeff of [place] 13.5 (11.5-14.5) % Plt Count 178 (130-400) K/uL MPV 11.3 (9.4-12.4) fL Sodium 138 (136-145) mmol/L Potassium 3.7 (3.5-5.1) mmol/L Chloride 107 (98-107) mmol/L Carbon Dioxide 24 (21-32) mmol/L Anion Gap 7 (3-11) BUN 15 (6-23) mg/dl Creatinine 1.14 (0.6-1.4) mg/dl Est Cr Clr Drug Dosing 56.9 ml/min Est GFR ( Amer) 71.0 ml/min Est GFR (Non-Af Amer) 61.3 ml/min BUN/Creatinine Ratio 13.2 (10-20) Glucose 94 (70-99(Fasting)) mg/dl Calcium 8.6 (8.6-10.3) mg/dl Phosphorus 3.4 (2.5-4.9) mg/dl Magnesium 1.9 (1.7-2.4) mg/dl
--- NOTE | 2022-12-30 15:40 | Hospitalist Progress Note ---
Date of Service December 30, 2022 Assessment & Plan (1) Bowel perforation: Plan: 77-year-old gentleman with PMH of HTN, Crohn's disease status post surgery, CRI [baseline creatinine 1.4], alcoholic cirrhosis, urolithiasis, past tobacco/alcohol abuse who had outpatient colonoscopy about 2 weeks ago [employer] when 2 masses were clipped per patient. Patient did not have any postprocedure complications or abdominal pain. CT of the abdomen and pelvis was done on the day of arrival which showed findings suggestive of perforated viscus. He is being managed for the following: Bowel perforation Recent outpatient colonoscopy CT abdomen pelvis on the day of arrival with findings suggestive of perforated viscus, exact site of perforation not visualized. There was trace extraluminal air present. Patient with no abdominal pain. General surgery on board, conservative management, clear liquid diet today and FLD jordy. Ertapenem started, will continue. DC IVF. Pain Mx, Nausea control. ARF on CKD: Status post IV fluid. Resolved. Other chronic medical conditions: Continue with/resume home meds as and when able. History IBD status post surgery: Patient asymptomatic and nontoxic. Hypertension, stable Alcoholic cirrhosis, no overt decompensation Hyperglycemia rule out DM - ruled out. past tobacco/alcohol abuse DVT prophylaxis. Heparin subcu Full code Please note the above document was generated using voice recognition software. It may contain grammatical, syntax or spelling errors. Any formal questions or concerns about the content, text or information contained within the body of this dictation should be directly addressed to the undersigned for clarification. Admission and Anticipated Discharge Date Admission Date: December 28, 2022 Subjective Patient was seen and examined at bedside. Patient was lying in bed, on room air, resting comfortably, not in any acute distress. Patient reports no belly pain, denies any abdominal distention than his baseline, is n.p.o., denies any new acute event overnight. Reports moving BM. Patient denies any flulike illness or febrile illness, denies any headache or dizziness or chest pain or palpitation. Physical Exam Physical Exam: GENERAL: Alert and oriented x3. NAD, on RA. HEENT: No pallor, no icterus. Pupils equal, round and reactive to light. Oral mucosa moist. NECK: No JVD, no neck masses. HEART: S1 and S2 heard. Regular rate and rhythm. No murmur, no gallop. RESPIRATORY SYSTEM: Normal AP diameter. No accessory muscle use. No wheezing, no crackles. ABDOMEN: Soft, bowel sounds present, nontender, no distention compared to his baseline per pt. CENTRAL NERVOUS SYSTEM: No facial droop. Speech is clear. Obeys simple commands. Moves extremities. EXTREMITIES: No edema, no erythema seen. Results & Data Results & Data Vital Signs (Past 12 Hours) Vital Signs Temp Pulse Resp BP Pulse Ox O2 Del Method 12/30/22 06:23 36.3 C L 71 16 129/82 96 Room Air
--- NOTE | 2022-12-30 16:52 | Discharge Summary ---
Date of Service December 30, 2022 Admission HPI Per Admitting Provider History obtained from patient and records. Medical history significant for hypertension, valvular heart disease (mild to moderate MR, mitral valve prolapse TTE 2022), Crohn's disease status post surgery, CRI (baseline creatinine 1.4 ), alcoholic cirrhosis, urolithiasis, past tobacco/alcohol abuse. Last confinement May 2018 for ARF secondary to obstructive uropathy status post stent placement. Patient underwent outpatient colonoscopy 2 weeks ago at local [facility] facility. Active and chronic enteritis with ulcerative erosion noted. No granulomas or dysplasia identified. No unusual belly pain postprocedure. Outpatient CT abdomen pelvis requested by [facility] GI specialist done today at [facility]. 1. Long segment irregular wall thickening and enhancement involving the ascending colon, hepatic flexure and proximal transverse colon. Findings may represent a nonspecific colitis versus a mucosal lesion. 2. Trace extraluminal air compatible with perforated viscus, exact site of perforation not visualized. 3. Findings suggestive of a partial right hemicolectomy with ileocolic anastomosis. There is chronic scarring with tethering within the abdominal right lower quadrant. No obstruction. 4. Age-indeterminate high-grade stenosis versus occlusion is noted involving a distal branch of the MCA within the abdominal right lower quadrant just proximal to mesenteric surgical clips. Patient directed to ER for evaluation. IV cefoxitin administered at the ER. Medical History as above Surgical History : Left quadriceps muscle surgery, bowel surgery Family History : Dementia, prostate cancer, TIA Personal/Social history : Past tobacco/alcohol abuse, retired [employer] employee Admission Exam Per Admitting Provider GENERAL: Comfortable, pleasant, no respiratory distress SKIN: Normal color, warm HEENT: Bespectacled, pink palpebral conjunctivae, no ptosis, moist buccal mucosa NECK : Supple, no tenderness CHEST : CTA, no tenderness HEART : RRR, no obvious murmurs ABDOMEN: Some distention, nontender EXTREMITIES : No LE swelling/tenderness, no other conspicuous deformities noted NEUROLOGIC : Coherent, no facial asymmetry, no other gross focality Principal Diagnosis Bowel perforation PETE over CKD Discharge Exam GENERAL: Alert and oriented x3. NAD, on RA. HEENT: No pallor, no icterus. Pupils equal, round and reactive to light. Oral mucosa moist. NECK: No JVD, no neck masses. HEART: S1 and S2 heard. Regular rate and rhythm. No murmur, no gallop. RESPIRATORY SYSTEM: Normal AP diameter. No accessory muscle use. No wheezing, no crackles. ABDOMEN: Soft, bowel sounds present, nontender, no distention compared to his baseline per pt. CENTRAL NERVOUS SYSTEM: No facial droop. Speech is clear. Obeys simple commands. Moves extremities. EXTREMITIES: No edema, no erythema seen. Discharge Data Allergies Allergy/AdvReac Type Severity Reaction Status Date / Time latex Allergy Redness of Verified 04/09/19 11:01 Skin mercaptopurine Allergy Unknown Verified 12/28/22 21:29 amoxicillin AdvReac SEVERE Verified 04/09/19 11:01 DIARRHEA Consultations 12/28/22 21:12 ED Decision to Admit Stat 12/29/22 09:22 Consult General Surgery Routine Hospital Course (1) Bowel perforation: 77-year-old gentleman with PMH of HTN, Crohn's disease status post surgery, CRI [baseline creatinine 1.4], alcoholic cirrhosis, urolithiasis, past tobacco/alcohol abuse who had outpatient colonoscopy about 2 weeks ago [employer] when 2 masses were clipped per patient. Patient did not have any postprocedure complications or abdominal pain. CT of the abdomen and pelvis was done on the day of arrival which showed findings suggestive of perforated viscus. He was managed for the following: Bowel perforation, likely due to recent colonoscopy Recent outpatient colonoscopy CT abdomen pelvis on the day of arrival with findings suggestive of perforated viscus, exact site of perforation not visualized. There was trace extraluminal air present. Patient with no abdominal pain. General surgery on board, conservative management, clear liquid diet today and FLD jordy. Patient would like to go home today, patient advised to come back to the hospital if with worsening abdominal pain with advancement of diet. Ertapenem started, will continue Cipro and Flagyl upon discharge to complete 5- day course. ARF on CKD: Status post IV fluid. Resolved. Other chronic medical conditions: Continue with/resume home meds as and when able. History IBD status post surgery: Patient asymptomatic and nontoxic. Hypertension, stable Alcoholic cirrhosis, no overt decompensation Hyperglycemia rule out DM - ruled out. past tobacco/alcohol abuse DVT prophylaxis. Heparin subcu Full code Patient being discharged home with following instruction at the point of discharge: Follow-up with your primary care physician within a week time and likely you will need labs CBC/CMP/magnesium/phosphorus. You will be discharged on antibiotic to complete 5-day therapy, start your antibiotic for tomorrow morning. Continue with full liquid diet for tomorrow and then soft diet from day after tomorrow. If you have any worsening of abdominal pain with advancement of diet, please refer to emergency immediately. Take your medications as prescribed. Please make sure that you are able to get your medications today by calling your pharmacy before you leave the hospital so that your treatment continuity is not broken. Home Health Attestation I certify that this patient is under my care and that I, or a physicians teacher's assistant working with me, had a face to-face encounter that meets the home health [id number] encounter requirements with this patient. The encounter with the patient was in whole, or in part, for the following medical condition, which is the primary reason for home health care (list medical condition): I certify that, based on my findings, the following services are medically necessary home health services: My clinical findings support the need for the above services because: Further, I certify that my clinical findings support that this patient is homebound (i.e. absences from home require considerable and taxing effort and are for medical reasons or worship services or infrequently or of short duration when for other reasons) because: Certification for Home Health Services: Based on the above findings, I certify that this patient is confined to the home and needs intermittent prison care, physical therapy and/or speech therapy or continues to need occupational therapy. The patient is under my care, and I have initiated the establishment of the plan of care. This patient will be followed by a physician who will periodically review the plan of care. Total Time Total Time Spent Total Time Spent (In Minutes): 45 Discharge Plan Discharge Items Patient Disposition: Home - Self-Care Reason For Visit: PERF BOWEL Discharge Diagnosis: Bowel perforation PETE over CKD Activity: Resume your previous activity Non-emergency contact: Primary Care Provider Call non-emergency contact if: you have any medication questions, your symptoms worsen, your pain is worsening and your temperature is above 101 Follow-up/Referrals: Ricky Bose MD [Primary Care Provider] - (Date & Time 01/05/2023 11:00 AM Provider Ricky Bose III, MD Department [facility] ) Diet: Other - See Diet Comment Diet Comment: Full liquid diet on 12/31, soft diet for 1 week starting 01/01/23 Addtl Attending Provider Instructions: Follow-up with your primary care physician within a week time and likely you will need labs CBC/CMP/magnesium/phosphorus. You will be discharged on antibiotic to complete 5-day therapy, start your antibiotic for tomorrow morning. Continue with full liquid diet for tomorrow and then soft diet from day after tomorrow. If you have any worsening of abdominal pain with advancement of diet, please refer to emergency immediately. Take your medications as prescribed. Please make sure that you are able to get your medications today by calling your pharmacy before you leave the hospital so that your treatment continuity is not broken. Pending Studies at Discharge: No Stand-Alone Forms: My [facility] [employer] Smoking Cessation Medications and DC Order Prescriptions: New ciprofloxacin HCl 500 mg tablet 500 mg PO BID 3 Days Qty: 6 0RF metronidazole 500 mg tablet 500 mg PO TID 3 Days Qty: 9 0RF Probiotic 3 billion cell capsule 3,000 mmu cells PO DAILY 7 Days Qty: 7 0RF Rx Instructions: administer with a meal Continued polysaccharide iron complex [iFerex 150] 150 mg iron Capsule 150 mg PO QAM potassium citrate [Urocit-K 10] 10 mEq (1,080 mg) Tablet Extended Release 10 meq PO TID cyanocobalamin (vitamin B-12) 1,000 mcg/mL Solution 1,000 mcg IM MONTHLY fluoxetine [Prozac] 20 mg capsule 20 mg PO QAM allopurinol 300 mg tablet 300 mg PO DAILY famotidine 20 mg tablet 20 mg PO DAILY amlodipine 10 mg tablet 10 mg PO DAILY biotin 5 mg Capsule 5 mg PO QAM omega 9-iuc-vdu-fish oil [Fish Oil] 1,000 mg (120 mg-180 mg) Capsule 1 cap PO DAILY ustekinumab 90 mg/mL Syringe 90 mg SUBCUT .EVERY 8 WEEKS Men's Multivitamin 400-20-300 mcg Tablet 1 tab PO DAILY cholecalciferol (vitamin D3) [Vitamin D3] 125 mcg (5,000 unit) Tablet 500 mcg PO QAM Rx Instructions: 4 tablet dose aspirin 81 mg Tablet,Delayed Release (Dr/Ec) 81 mg PO DAILY Discharge Orders: Discharge Order (Routine); Ordered 12/30/22 Ordered By: Penny Ch Admission Data Admit Date/Time: 12/28/22 23:29 Attending Provider: Penny Ch Admit Provider: Silvano Hinton Primary Care Provider: Ricky Bose Other Providers: Silvano Hinton ; Cj Suarez ; Victor Manuel Fitzpatrick ; Sendy Mejia ; Reggie Guevara ; Jc Hollis ; Rita Lynn ; Anju Hutton ; Clark Finley Jr ; Bernardo Cuenca ; Jovon Plasencia ; Anita Ly ; [facility]
== END 2022-12-30 18:45 | disposition home or self-care (01) | DRG 393 ==
LOC: ED 19:17 → 3W 23:29